=== PATIENT | male | born 1930 | race Caucasian/White ===

== ENCOUNTER 2016-08-29 18:22 | Emergency (ER) | payer MEDICARE, BC ==
[2016-08-29] MEDS ORDERED: Sodium Chloride 0.9% 10 ML Syringe FLUSH PRN (20:18)
[2016-08-29] MEDS ORDERED: Ondansetron 8 MG in Sodium Chloride 0.9% 100 ML IV ONE (20:18)
[2016-08-29] MEDS ORDERED: Sodium Chloride 0.9% 1,000 ML IV ONE (20:18)
[2016-08-29] MEDS ORDERED: Ondansetron 4 MG/2 ML SDV IVPUSH ONE (20:31)
[2016-08-29 21:06] LABS: CHLORIDE,CL 103 mmol/L (98-107); SODIUM,NA 138 mmol/L (136-145)
[2016-08-29] MEDS ORDERED: Acetaminophen 500 MG Tab PO ONE (21:14)
[2016-08-29] MEDS ORDERED: cefTRIAXone 1 GM Vial IVPUSH ONE (21:19)
--- NOTE | 2016-08-29 21:35 | EDM.PDOC ---
ED HISTORY OF PRESENT ILLNESS - General Chief Complaint: Fever Stated Complaint: fever, cough Time Seen by Provider: 08/29/16 20:05 Source of Information: Reports: Patient, Family History Limitations: Reports: No limitations - History of Present Illness INITIAL COMMENTS - FREE TEXT/NARRATIVE: Patient comes in tonight with his . He states he has been ill for approximately 10 days with a cough, fever, muscle aches and pains. He also states he is SOB. No chest pain, no bloody stool, emesis or urine. No abdominal pain. He did begin getting nauseated this evening with 2 episodes of emesis. This is new. He states last two days he has had diarrhea. Has had recent ill contact. He did receive the flu vaccine. 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 No alcohol, no drug use. Symptom Onset Date: 08/22/16 Timing/Duration: Reports: Gradual onset Severity: moderate Location, General: Reports: chest Improves with: Reports: None Worsens with: Reports: Movement Associated Symptoms (General): Reports: cough, fever/chills, loss of appetite, nausea/vomiting, shortness of breath, other (muscle aches) - Related Data Allergies/ADRs: Allergies Allergy/AdvReac Type Severity Reaction Status Date / Time morphine Allergy Other Verified 08/29/16 22:42 Home Meds: Home Meds Digoxin [Digox] 125 mcg PO DAILY 06/02/14 [History] Metoprolol Tartrate [Lopressor] 0.5 tab PO BID 06/02/14 [History] Warfarin [Coumadin] 5 mg PO ASDIRECTED 06/02/14 [History] atorvaSTATin [Lipitor] 10 mg PO BEDTIME 06/02/14 [History] Albuterol Sulfate [Albuterol Sulfate HFA] 2 inh INH Q2HR PRN 06/03/14 [History] Meclizine [Antivert] 12.5 mg PO DAILY PRN 06/03/14 [History] Nitroglycerin [Nitrostat] 0.4 mg SL ASDIRECTED PRN 06/03/14 [History] Tamsulosin [Tamsulosin 24 Hr] 0.4 mg PO DAILY 06/03/14 [History] Past Medical History HEENT History: Reports: Cataract, Impaired vision, Macular degeneration Cardiovascular History: Reports: Afib, CAD, Heart Failure, Heart murmur, High cholesterol, Hypertension, Pacemaker, PTCA, Other (see below) Other Cardiovascular History: vertigo, sinoatrial node dysfunction Respiratory History: Reports: COPD Gastrointestinal History: Reports: GERD, Other (see below) Other Gastrointestinal History: bilat ing. hernia, hx c. diff Genitourinary History: Reports: BPH, Renal calculus, Other (see below) Other Genitourinary History: CKD stage III Musculoskeletal History: Reports: Arthritis, Back pain, chronic, Neck pain, chronic, Other (see below) Other Musculoskeletal History: bilat carpal tunnel syndrome, Neurological History: Reports: TIA Psychiatric History: Reports: None Endocrine/Metabolic History: Reports: Other (see below) Other Endocrine/Metabolic History: hyperglycemia, Hematologic History: Reports: Anticoagulation therapy Immunologic History: Reports: None Dermatologic History: Reports: Melanoma Other Dermatologic History: BILAT ARMS SKIN CA - Past Surgical History HEENT Surgical History: Reports: Cataract surgery Other HEENT Surgeries/Procedures: INJECTIONS TO RIGHT EYE Q MONTHLY Cardiovascular Surgical History: Reports: Pacer, Percutaneous transluminal angioplasty GI Surgical History: Reports: Appendectomy, Cholecystectomy, Colonoscopy Male Surgical History: Reports: Other (see below) Other Male Surgeries/Procedures: nephrostomy tube placement, ureterolithotomy , cystoscopy Neurological Surgical History: Reports: Other (see below) Other Neurological Surgeries/Procedures: back sx x2 Musculoskeletal Surgical History: Reports: Other (see below) Other Musculoskeletal Surgeries/Procedures:: tendon sheath incision finger Social & Family History - Tobacco Use Smoking Status *Q: Former Smoker Years of Tobacco use: 30 Used Tobacco, but Quit: Yes Second Hand Smoke Exposure: No - Alcohol Use Days Per Week of Alcohol Use: 0 - Recreational Drug Use Recreational Drug Use: No ED ROS GENERAL - Review of Systems Review Of Systems: See Below Constitutional: Reports: fever, chills, malaise HEENT: Reports: No symptoms Respiratory: Reports: shortness of breath, cough Cardiovascular: Reports: No symptoms Endocrine: Reports: no symptoms GI/Abdominal: Reports: Diarrhea, Nausea, Vomiting : Reports: no symptoms Musculoskeletal: Reports: no symptoms Skin: Reports: no symptoms Neurological: Reports: no symptoms Psychiatric: Reports: No symptoms Hematologic/Lymphatic: Reports: no symptoms Immunologic: Reports: no symptoms ED EXAM, GENERAL - Physical Exam Exam: See Below Exam Limited By: No limitations General Appearance: alert, WD/WN, mild distress Eye Exam: bilateral eye: EOMI, PERRL Ears: normal TMs Nose: normal inspection Throat/Mouth: Normal inspection, Normal lips, Normal oropharynx, Normal voice Head: atraumatic, normocephalic Neck: normal inspection, supple, non-tender, full range of motion Respiratory/Chest: no respiratory distress, no accessory muscle use, chest non- tender, rhonchi (fine, scattered, bilateral lower lobes) Cardiovascular: normal peripheral pulses, regular rate, rhythm Peripheral Pulses: 2+: posterior tibial (L), posterior tibial (R), dorsalis pedis (L), dorsalis pedis (R) GI/Abdominal: normal bowel sounds, soft, non tender Extremities: normal inspection, normal range of motion, normal capillary refill Neurological: alert, oriented, CN II-XII intact, normal cognition, normal gait Psychiatric: normal affect, normal mood Skin Exam: Warm, Dry, Intact Lymphatic: no adenopathy Course - Vital Signs Last Recorded V/S: Last Vital Signs Temp 38.1 C 08/29/16 21:28 Pulse 94 08/29/16 21:28 Resp 20 08/29/16 21:28 BP 165/75 H 08/29/16 19:50 Pulse Ox 94 L 08/29/16 21:28 - Orders/Labs/Meds Orders: Active Orders 24 hr Category Date Time Status Chest 1V Frontal [CR] Stat Exams 08/29/16 20:50 Taken Chest 2V [CR] Stat Exams 08/29/16 20:18 Stop Req Saline Lock Insert [OM.PC] Routine Oth 08/29/16 20:18 Ordered Labs: Laboratory Tests 08/29/16 08/29/16 08/29/16 Range/Units 20:30 20:30 20:30 WBC 7.8 (4.0-10.0) x10^3/uL RBC 4.79 (4.5-6.0) x10^6/uL Hgb 15.7 (14.0-18.0) g/dL Hct 46.6 (40.0-52.0) % MCV 97.3 H (78.0-93.0) fL MCH 32.8 H (26.0-32.0) pg MCHC 33.7 (32.0-36.0) g/dL RDW Coeff of Larry 12.7 (10.0-15.0) % Plt Count 177 (130-400) x10^3/uL Neut % (Auto) 83.0 H (50.0-80.0) % Lymph % (Auto) 7.4 L (25.0-50.0) % Mccone % (Auto) 7.0 (2.0-11.0) % Eos % (Auto) 2.5 (0.0-4.0) % Baso % (Auto) 0.1 L (0.2-1.2) % Sodium 138 (136-145) mmol/L Potassium 4.4 (3.5-5.1) mmol/L Chloride 103 (98-107) mmol/L Carbon Dioxide 28 (21-32) mmol/L BUN 23 H (7-18) mg/dL Creatinine 1.4 H (0.70-1.30) mg/dL Est Cr Clr Drug Dosing TNP Estimated GFR (MDRD) 48 Glucose 175 H (74-106) mg/dL Lactic Acid 2.2 H (0.4-2.0) mmol/L Calcium 9.0 (8.5-10.1) mg/dL Corrected Calcium 9.56 (8.5-10.1) mg/dL Total Bilirubin 0.9 (0.2-1.0) mg/dL AST 16 (15-37) U/L ALT 20 (16-63) U/L Alkaline Phosphatase 94 (46-116) U/L C-Reactive Protein 4.0 H (<=0.9) mg/dL Total Protein 7.7 (6.4-8.2) g/dL Albumin 3.3 L (3.4-5.0) g/dL Globulin 4.4 Albumin/Globulin Ratio 0.75 Meds: Medications Discontinued Medications Generic Name Dose Route Start Last Admin Trade Name Freq PRN Reason Stop Dose Admin Acetaminophen 500 mg 08/29/16 21:14 08/29/16 21:24 Tylenol Extra Strength PO 08/29/16 21:15 500 mg ONETIME ONE Administration Ceftriaxone Sodium 1 gm 08/29/16 21:19 08/29/16 21:41 Rocephin IVPUSH 08/29/16 21:20 1 gm ONETIME ONE Administration Ondansetron HCl 8 mg/ Sodium 104 mls @ 400 mls/hr 08/29/16 20:18 Chloride IV 08/29/16 20:33 ONETIME ONE Sodium Chloride 1,000 mls @ 999 mls/hr 08/29/16 20:18 08/29/16 20:35 Normal Saline IV 08/29/16 21:18 999 mls/hr .BOLUS ONE Administration Ondansetron HCl 4 mg 08/29/16 20:31 08/29/16 20:30 Zofran IVPUSH 08/29/16 20:32 4 mg ONETIME ONE Administration Sodium Chloride 10 ml 08/29/16 20:18 Saline Flush FLUSH ASDIRECTED PRN Keep Vein Open Departure - Departure Time of Disposition: 21:55 Disposition: Home, Self-Care 01 Clinical Impression: Influenza A Instructions: Influenza, Adult, [id number] Referrals: Mary Gonzalez MD [Primary Care Provider] - Forms: ED Department Discharge Additional Instructions: Please make sure to take tylenol for your fever. You do have influenza A, radiologist did not believe you have a pneumonia. You do need to try to stay hydrated. This will help limit the length of your illness. I gave you a prescription for nausea medication that you can fill tomorrow. I gave some for you to take home tonight also. If your symptoms worsen please see your primary doctor for additional testing. If you have any questions or concerns please call or stop by the emergency room. - Problem List & Annotations (1) Influenza A SNOMED Code(s): 691913356 Code(s): J10.1 - FLU DUE TO OTH IDENT INFLUENZA VIRUS W OTH RESP MANIFEST Status: Acute Priority: Low - Problem List Review Problem List Initiated/Reviewed/Updated: Yes - My Orders Last 24 Hours: My Active Orders 08/29/16 20:18 Chest 2V [CR] Stat Saline Lock Insert [OM.PC] Routine 08/29/16 20:50 Chest 1V Frontal [CR] Stat - Assessment/Plan Last 24 Hours: My Active Orders 08/29/16 20:18 Chest 2V [CR] Stat Saline Lock Insert [OM.PC] Routine 08/29/16 20:50 Chest 1V Frontal [CR] Stat Assessment:: Influenza A Plan: Please make sure to take tylenol for your fever. You do have influenza A, radiologist did not believe you have a pneumonia. You do need to try to stay hydrated. This will help limit the length of your illness. I gave you a prescription for nausea medication that you can fill tomorrow. I gave some for you to take home tonight also. If your symptoms worsen please see your primary doctor for additional testing. If you have any questions or concerns please call or stop by the emergency room.
[2016-08-29 22:42] VITALS: BP 165/75
== END 2016-08-29 21:55 | disposition home or self-care (01) ==
LOC: VM.ED 18:22
DX: J10.1 Influenza due to other identified influenza virus with other respiratory manifestations (principal); I25.10 Atherosclerotic heart disease of native coronary artery without angina pectoris; I50.9 Heart failure, unspecified; I13.0 Hypertensive heart and chronic kidney disease with heart failure and stage 1 through stage 4 chronic kidney disease, or unspecified chronic kidney disease; E78.00 Pure hypercholesterolemia, unspecified; J44.9 Chronic obstructive pulmonary disease, unspecified; K21.9 Gastro-esophageal reflux disease without esophagitis; N18.3 Chronic kidney disease, stage 3 (moderate); M19.90 Unspecified osteoarthritis, unspecified site; Z88.5 Allergy status to narcotic agent; Z79.899 Other long term (current) drug therapy; Z79.01 Long term (current) use of anticoagulants; Z98.49 Cataract extraction status, unspecified eye; Z90.49 Acquired absence of other specified parts of digestive tract; Z87.891 Personal history of nicotine dependence
CPT/HCPCS: 36415; 71010; 80053; 83605; 85025; 86140; 87804; 96361; 96374; 96375; 99284; A9270; J0696; J2405; J7030

== ENCOUNTER 2016-12-11 05:21 | Emergency (ER) | payer MEDICARE, BC ==
--- NOTE | 2016-12-11 06:24 | EDM.PDOC ---
[id number] Time Seen by Provider: 12/11/16 05:54 Source of Information: Reports: Patient, Family History Limitations: Reports: No Limitations - History of Present Illness INITIAL COMMENTS - FREE TEXT/NARRATIVE: Patient comes in this morning with complaints of nose bleed. He had a stent placed on and was seen at the clinic on Monday because his IV site was oozing. He is receiving lovenox, plavix, aspirin, and coumadin. According to he and his he needs valve replacement surgery which they will be doing via angiography as he is not a candidate for open heart surgery. He is nauseated and having a bloody emesis due to all the blood that he has swallowed. His bloody nose is mostly resolved when I examine him, however, he does have an elevated systolic blood pressure and he has right eye pain. 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 Has had bilateral cataract surgery. Onset: Today Onset Date: 12/11/16 Onset Time: 03:00 Location: Reports: Head Quality: Reports: Ache Severity: Moderate Improves with: Reports: None Worsens with: Reports: None Associated Symptoms: Reports: Other (right eye pain) Right Eye Pain Score (Numeric/FACES): 3 - Related Data Allergies Allergy/AdvReac Type Severity Reaction Status Date / Time morphine Allergy Hives Verified 12/11/16 05:36 Home Meds: Home Meds Digoxin [Digox] 125 mcg PO DAILY 06/02/14 [History] Metoprolol Tartrate [Lopressor] 0.5 tab PO BID 06/02/14 [History] Warfarin [Coumadin] 5 mg PO ASDIRECTED 06/02/14 [History] atorvaSTATin [Lipitor] 10 mg PO BEDTIME 06/02/14 [History] Albuterol Sulfate [Albuterol Sulfate HFA] 2 inh INH Q2HR PRN 06/03/14 [History] Nitroglycerin [Nitrostat] 0.4 mg SL ASDIRECTED PRN 06/03/14 [History] Tamsulosin [Tamsulosin 24 Hr] 0.4 mg PO DAILY 06/03/14 [History] Aspirin 81 mg PO DAILY 12/11/16 [History] Clopidogrel [Plavix] 75 mg PO DAILY 12/11/16 [History] Enoxaparin [Lovenox] 80 mg SUBCUT Q12HR 12/11/16 [History] Sertraline [Zoloft] 12.5 mg PO DAILY 12/11/16 [History] Past Medical History HEENT History: Reports: Cataract, Impaired Vision, Macular Degeneration Cardiovascular History: Reports: Afib, CAD, Heart Failure, Heart Murmur, High Cholesterol, Hypertension, Pacemaker, PTCA, Other (See Below) Other Cardiovascular History: vertigo, sinoatrial node dysfunction Respiratory History: Reports: COPD Gastrointestinal History: Reports: GERD, Other (See Below) Other Gastrointestinal History: bilat ing. hernia, hx c. diff Genitourinary History: Reports: BPH, Renal Calculus, Other (See Below) Other Genitourinary History: CKD stage III Musculoskeletal History: Reports: Arthritis, Back Pain, Chronic, Neck Pain, Chronic, Other (See Below) Other Musculoskeletal History: bilat carpal tunnel syndrome, Neurological History: Reports: TIA Psychiatric History: Reports: None Endocrine/Metabolic History: Reports: Other (See Below) Other Endocrine/Metabolic History: hyperglycemia, Hematologic History: Reports: Anticoagulation Therapy Immunologic History: Reports: None Dermatologic History: Reports: Melanoma Other Dermatologic History: BILAT ARMS SKIN CA - Past Surgical History HEENT Surgical History: Reports: Cataract Surgery Cardiovascular Surgical History: Reports: Pacer, Percutaneous Transluminal Angioplasty Male Surgical History: Reports: Other (See Below) Musculoskeletal Surgical History: Reports: Other (See Below) Social & Family History - Tobacco Use Smoking Status *Q: Former Smoker Years of Tobacco use: 30 Used Tobacco, but Quit: Yes Month Tobacco Last Used: 360 Second Hand Smoke Exposure: No - Alcohol Use Days Per Week of Alcohol Use: 0 - Recreational Drug Use Recreational Drug Use: No ED ROS ENT - Review of Systems Review Of Systems: See Below Constitutional: Reports: No Symptoms HEENT: Reports: Eye Pain, Nosebleed Respiratory: Reports: Shortness of Breath (chronic) Cardiovascular: Reports: No Symptoms Endocrine: Reports: No Symptoms GI/Abdominal: Reports: Nausea, Vomiting : Reports: No Symptoms Musculoskeletal: Reports: No Symptoms Skin: Reports: No Symptoms Neurological: Reports: No Symptoms Psychiatric: Reports: No Symptoms Hematologic/Lymphatic: Reports: No Symptoms Immunologic: Reports: No Symptoms ED EXAM, ENT - Physical Exam Exam: See Below Exam Limited By: No Limitations General Appearance: Alert, WD/WN, Mild Distress Eye Exam: Bilateral Eye: EOMI Ears: Normal TMs Nose: Normal Inspection, Normal Mucousa, No Blood Mouth/Throat: Normal Inspection Head: Atraumatic, Normocephalic Neck: Normal Inspection, Supple, Non-Tender, Full Range of Motion Respiratory/Chest: No Respiratory Distress, Lungs Clear, Normal Breath Sounds, No Accessory Muscle Use Cardiovascular: Normal Peripheral Pulses, No Edema, Systolic Murmur, Irregularly Irregular GI/Abdominal: Normal Bowel Sounds, Soft, Non-Tender, No Organomegaly Extremities: Normal Inspection, Normal Range of Motion, Non-Tender, No Pedal Edema, Normal Capillary Refill Neurological: Alert, Oriented, CN II-XII Intact, Normal Cognition, Normal Gait, Normal Reflexes, No Motor/Sensory Deficits Psychiatric: Normal Affect, Normal Mood Skin: Warm, Dry, Intact, Normal Color Lymphatic: No Adenopathy Course - Vital Signs Last Recorded V/S: Last Vital Signs Temp 35.8 C 12/11/16 05:29 Pulse 75 12/11/16 11:30 Resp 16 12/11/16 11:30 BP 125/73 12/11/16 11:30 Pulse Ox 95 12/11/16 11:30 - Orders/Labs/Meds Labs: Laboratory Tests 12/11/16 12/11/16 12/11/16 Range/Units 06:47 06:47 06:47 WBC 9.6 (4.0-10.0) x10^3/uL RBC 4.44 L (4.5-6.0) x10^6/uL Hgb 14.8 (14.0-18.0) g/dL Hct 43.2 (40.0-52.0) % MCV 97.3 H (78.0-93.0) fL MCH 33.3 H (26.0-32.0) pg MCHC 34.3 (32.0-36.0) g/dL RDW Coeff of Larry 12.7 (10.0-15.0) % Plt Count 180 (130-400) x10^3/uL Neut % (Auto) 76.9 (50.0-80.0) % Lymph % (Auto) 10.7 L (25.0-50.0) % Liberty % (Auto) 7.6 (2.0-11.0) % Eos % (Auto) 4.6 H (0.0-4.0) % Baso % (Auto) 0.2 (0.2-1.2) % PT 17.3 H D (10.0-12.8) SEC INR 1.5 L (2.0-3.5) APTT (24.0-36.0) SEC Sodium 141 (136-145) mmol/L Potassium 4.1 (3.5-5.1) mmol/L Chloride 106 (98-107) mmol/L Carbon Dioxide 28 (21-32) mmol/L BUN 22 H (7-18) mg/dL Creatinine 1.3 (0.70-1.30) mg/dL Est Cr Clr Drug Dosing TNP Estimated GFR (MDRD) 52 Glucose 165 H (74-106) mg/dL Lactic Acid (0.4-2.0) mmol/L Calcium 8.9 (8.5-10.1) mg/dL Corrected Calcium 9.54 (8.5-10.1) mg/dL Total Bilirubin 0.8 (0.2-1.0) mg/dL AST 26 (15-37) U/L ALT 43 (16-63) U/L Alkaline Phosphatase 98 (46-116) U/L Creatine Kinase 27 L (39-308) U/L POC Troponin I (0.00-0.08) ng/mL C-Reactive Protein 1.6 H (<=0.9) mg/dL B-Natriuretic Peptide 1730 H (<=450) pg/mL Total Protein 7.2 (6.4-8.2) g/dL Albumin 3.2 L (3.4-5.0) g/dL Globulin 4.0 Albumin/Globulin Ratio 0.80 Digoxin 0.75 L (0.90-2.00) ng/mL 12/11/16 12/11/16 12/11/16 Range/Units 06:47 06:47 06:54 WBC (4.0-10.0) x10^3/uL RBC (4.5-6.0) x10^6/uL Hgb (14.0-18.0) g/dL Hct (40.0-52.0) % MCV (78.0-93.0) fL MCH (26.0-32.0) pg MCHC (32.0-36.0) g/dL RDW Coeff of Larry (10.0-15.0) % Plt Count (130-400) x10^3/uL Neut % (Auto) (50.0-80.0) % Lymph % (Auto) (25.0-50.0) % Liberty % (Auto) (2.0-11.0) % Eos % (Auto) (0.0-4.0) % Baso % (Auto) (0.2-1.2) % PT (10.0-12.8) SEC INR (2.0-3.5) APTT 32.5 (24.0-36.0) SEC Sodium (136-145) mmol/L Potassium (3.5-5.1) mmol/L Chloride (98-107) mmol/L Carbon Dioxide (21-32) mmol/L BUN (7-18) mg/dL Creatinine (0.70-1.30) mg/dL Est Cr Clr Drug Dosing Estimated GFR (MDRD) Glucose (74-106) mg/dL Lactic Acid 1.4 (0.4-2.0) mmol/L Calcium (8.5-10.1) mg/dL Corrected Calcium (8.5-10.1) mg/dL Total Bilirubin (0.2-1.0) mg/dL AST (15-37) U/L ALT (16-63) U/L Alkaline Phosphatase (46-116) U/L Creatine Kinase (39-308) U/L POC Troponin I 0.01 (0.00-0.08) ng/mL C-Reactive Protein (<=0.9) mg/dL B-Natriuretic Peptide (<=450) pg/mL Total Protein (6.4-8.2) g/dL Albumin (3.4-5.0) g/dL Globulin Albumin/Globulin Ratio Digoxin (0.90-2.00) ng/mL Meds: Medications Discontinued Medications Generic Name Dose Route Start Last Admin Trade Name Freq PRN Reason Stop Dose Admin Labetalol HCl 20 mg 12/11/16 06:33 12/11/16 06:59 Normodyne IVPUSH 12/11/16 06:34 20 mg NOW ONE Administration Protocol Ondansetron HCl 4 mg 12/11/16 06:29 12/11/16 06:32 Zofran Odt PO 12/11/16 06:30 4 mg ONETIME ONE Administration Sodium Chloride 10 ml 12/11/16 06:33 Saline Flush FLUSH ASDIRECTED PRN Keep Vein Open - Re-Assessments/Exams Free Text/Narrative Re-Assessment/Exam: 12/12/16 22:57 CT head ordered due to continued right eye pain and change in vision. Retinal hemorrhage shown on CT. Patient awaits transfer to [facility]. Patient hand off to All Donohue at 0700 Departure - Departure Time of Disposition: 07:00 (Report given to All Donohue. Patient transferred to [facility]) Disposition: DC/Tfer to Acute Hospital 02 Condition: Fair Clinical Impression: CHF (congestive heart failure), Retinal hemorrhage, right eye - Discharge Information Referrals: Mary Gonzalez MD [Primary Care Provider] - Forms: ED Department Discharge, Interfacility Transfer [facility]
[2016-12-11] MEDS ORDERED: Ondansetron 4 MG Tab.DIS PO ONE (06:29)
[2016-12-11] MEDS ORDERED: Sodium Chloride 0.9% 10 ML Syringe FLUSH PRN (06:33)
[2016-12-11] MEDS ORDERED: Labetalol 20 MG/4 ML Syringe IVPUSH ONE (06:33)
[2016-12-11 07:38] LABS: CHLORIDE,CL 106 mmol/L (98-107); SODIUM,NA 141 mmol/L (136-145)
[2016-12-11 12:48] VITALS: BP 125/73
--- NOTE | 2016-12-12 07:48 | ER ---
Date of Service: 12/11/2016 SUBJECTIVE: Link presents to the emergency room with complaints of epistaxis. The patient states that the bleeding started at approximately 4 o'clock this morning and he states that it has been intermittent in nature. The bleeding has only been present from the right naris. The patient denies any head or facial trauma. The patient also noticed when he woke up that he had acute central vision loss in the right eye. 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 Tinoco at [facility] for this. He undergoes injections of Eylea intravitreally for the macular degeneration. The patient has a history of valvular heart disease and is scheduled to undergo YONATHAN aortic valve replacement. He underwent PTCA with stenting of the left coronary artery. He was subsequently started on Plavix as well as Coumadin and is currently bridged with 80 mg twice daily of Lovenox which is obviously causing complications of a retinal hemorrhage and epistaxis. PAST MEDICAL HISTORY: 1. Congestive heart failure. 2. Valvular heart disease. 3. Coronary artery disease. 4. BPH. 5. Depression. 6. Hypertension. 7. Anxiety. 8. Dyslipidemia. MEDICATIONS: 1. Albuterol HFA 2 puffs q.2 h. p.r.n. 2. Coumadin 5 mg p.o. as directed by the [facility]. 3. Flomax 0.4 mg p.o. daily. 4. Zoloft 12.5 mg p.o. daily. 5. Metoprolol tartrate 25 mg half a tablet p.o. b.i.d. 6. Digoxin 125 mcg p.o. daily. 7. Lipitor 10 mg p.o. at bedtime. 8. Lovenox 80 mg subcutaneously every 12 hours. 9. Clopidogrel 75 mg p.o. daily. 10.Aspirin 81 mg daily. 11.Nitrostat 0.4 mg sublingually as needed. REVIEW OF SYSTEMS: General: No fever or chills. HEENT: Denies any sore throat, rhinorrhea, or congestion. Please see history of present illness. Respiratory: No shortness of breath. Complains of mild cough and dyspnea. Cardiac: Denies any substernal chest pain. No jaw, arm, neck, or back pain. GI: No nausea, vomiting, or diarrhea. No melena, hematochezia, or hematemesis. : Denies any dysuria. Musculoskeletal: No myalgias or arthralgias. Neurologic: No fainting, blackouts, or lightheadedness. PHYSICAL EXAMINATION: General: This is an 86-year-old male patient, who is in no acute distress. Vital Signs: Blood pressure is 200/93, heart rate is 79, O2 saturations 93% on room air, respiratory rate is 20, and temperature is 35.8. Skin: Warm, pink, and dry. HEENT: Head is normocephalic, atraumatic. Eyes: PERRLA. Extraocular movements are intact. He does have evidence of what appears to be a retinal hemorrhage. Nose: Epistaxis is controlled. Mouth: Oral mucosa is moist. Lungs: Clear to auscultation. Diminished with crackles. No obvious rhonchi noted. Heart: Regular rate and rhythm. Normal S1 and S2. No S3, S4, murmurs, clicks, or rubs. Irregularly irregular with a systolic murmur. Abdomen: Soft and nontender. There is no hepatosplenomegaly noted. There is no masses noted. Extremities: Without edema. Neurologic: He is alert and oriented, answers questions appropriately. His speech is fluent. His recreation specialist strength is equal. His pronator drift is negative. No facial droop noted. LABORATORY DATA: WBCs 9.6, hemoglobin is 14.8, and platelets are 180. Coags: PT is 17.3, INR is 1.5, and PTT is 32.5. Chemistry: Sodium is 141, potassium is 4.1, chloride is 106, bicarb is 28, BUN is 22, and creatinine is 1.3. GFR is 52. Glucose is 165. Lactic acid is 1.4. Calcium is 8.9. Corrected calcium is 9.54. Total bilirubin is 0.8, AST is 26, ALT is 43, alkaline phosphatase is 98, CK is 27, and troponin is 0.01. C-reactive protein is 1.6. BNP is 1730, total protein is 7.5, and albumin is 3.2. Digit level was low at 0.17. EMERGENCY ROOM COURSE: IV access was established. The patient was given 20 mg of labetalol IV and his blood pressure decreased nicely and at discharge, his blood pressure was 140/75. He was experiencing some pain in his right eye which he states has decreased significantly since I have being treated for his hypertension. He remained stable in my care in the emergency room. ASSESSMENT: 1. Congestive heart failure. 2. Aortic valve stenosis. 3. Retinal hemorrhage and epistaxis secondary to anticoagulation with Coumadin and Lovenox and use of Plavix. PLAN: Initially, did contact [facility] regarding his retinal hemorrhage and they stated that they did not have a retina specialist available. I subsequently contacted [facility] in [place] and spoke with Dr. Chung, who was much more helpful regarding disposition for this patient. He stated that they would see him in the clinic for injection of Eylea next week if I could not arrange for the patient to see a retina specialist. He also stated that he would not require intervention from optometry acutely and stated that they could certainly wait until his medical conditions are stabilized and advised either contacting [facility] in [place] or Dr. Pedro Andrade, retina redness specialist in [place] regarding care for this patient after he is discharged. I subsequently contacted Dr. Kaylee Rowan regarding admission for this patient and stabilization of his congestive heart failure and she stated that she did not feel comfortable caring for this patient given his complex history of heart disease and requested that the patient be transferred to [facility] in [place]. I subsequently contacted [facility] again and spoke with Dr. Arana, the hospitalist again who at this time did accept the patient in transfer only to care for his cardiac issues and congestive heart failure. The patient will be transported by [facility] ground ambulance. To note, I did speak with Dr. Arana regarding my discussion with Dr. Chung, and subsequent follow up either at [facility] in [place] or with Dr. Andrade in [place]. All questions were answered. MWK: 12/11/2016 11:11:19 MODL: 12/11/2016 12:45:09 /[id number]
== END 2016-12-11 12:06 | disposition short-term general hospital (02) ==
LOC: VM.ED 05:21
DX: R04.0 Epistaxis (principal); D68.32 Hemorrhagic disorder due to extrinsic circulating anticoagulants; T45.515A Adverse effect of anticoagulants, initial encounter; T45.525A Adverse effect of antithrombotic drugs, initial encounter; I50.9 Heart failure, unspecified; I35.0 Nonrheumatic aortic (valve) stenosis; H35.61 Retinal hemorrhage, right eye; Z79.02 Long term (current) use of antithrombotics/antiplatelets; R11.2 Nausea with vomiting, unspecified; Z79.01 Long term (current) use of anticoagulants; Z79.82 Long term (current) use of aspirin; H54.42 Blindness, left eye, normal vision right eye; I48.91 Unspecified atrial fibrillation; I25.10 Atherosclerotic heart disease of native coronary artery without angina pectoris; N18.3 Chronic kidney disease, stage 3 (moderate); E78.00 Pure hypercholesterolemia, unspecified; I49.5 Sick sinus syndrome; J44.9 Chronic obstructive pulmonary disease, unspecified; K21.9 Gastro-esophageal reflux disease without esophagitis; N40.0 Benign prostatic hyperplasia without lower urinary tract symptoms; M19.90 Unspecified osteoarthritis, unspecified site; G89.29 Other chronic pain; M54.9 Dorsalgia, unspecified; Z86.73 Personal history of transient ischemic attack (TIA), and cerebral infarction without residual deficits; Z85.820 Personal history of malignant melanoma of skin; Z95.5 Presence of coronary angioplasty implant and graft; Z95.0 Presence of cardiac pacemaker; Z87.891 Personal history of nicotine dependence
CPT/HCPCS: 36415; 70450; 71020; 80053; 80162; 82550; 83605; 83880; 84484; 85025; 85610; 85730; 86140; 93005; 96374; 99285; A9270

== ENCOUNTER 2017-03-11 15:23 | Emergency (ER) | payer MEDICARE, BC ==
--- NOTE | 2017-03-11 15:34 | EDM.PDOC ---
ED HPI GENERAL MEDICAL PROBLEM - General Chief Complaint: Cardiovascular Problem Stated Complaint: infected pacemaker Time Seen by Provider: 03/11/17 15:24 Source of Information: Reports: Patient, Family, RN, RN Notes Reviewed History Limitations: Reports: No Limitations - History of Present Illness INITIAL COMMENTS - FREE TEXT/NARRATIVE: Patient presents the emergency room at [facility] with concerns of a possible pacemaker infection. According to the patient's the patient has had a lump over the top of the insertion site of the patient's pacemaker. The states the pacemaker has been implanted several years ago. The white states the lump has been there for a very long time, but just recently the lump started to drain. The states that she talked with the patient's cardiovascular surgeon today who recommended the patient be evaluated in the emergency room. The states the patient is scheduled to have heart surgery this coming Monday. The cardiovascular surgeon recommended the patient be seen and started on antibiotics as soon as possible. Onset: Gradual - Related Data Allergies Allergy/AdvReac Type Severity Reaction Status Date / Time morphine Allergy Respiratory Verified 03/11/17 15:37 Distress Home Meds: Home Meds Digoxin [Digox] 125 mcg PO DAILY 06/02/14 [History] Metoprolol Tartrate [Lopressor] 0.5 tab PO BID 06/02/14 [History] Warfarin [Coumadin] 5 mg PO ASDIRECTED 06/02/14 [History] atorvaSTATin [Lipitor] 10 mg PO BEDTIME 06/02/14 [History] Albuterol Sulfate [Albuterol Sulfate HFA] 2 inh INH Q2HR PRN 06/03/14 [History] Nitroglycerin [Nitrostat] 0.4 mg SL ASDIRECTED PRN 06/03/14 [History] Tamsulosin [Tamsulosin 24 Hr] 0.4 mg PO DAILY 06/03/14 [History] Aspirin 81 mg PO DAILY 12/11/16 [History] Clopidogrel [Plavix] 75 mg PO DAILY 12/11/16 [History] Enoxaparin [Lovenox] 80 mg SUBCUT Q12HR 12/11/16 [History] Sertraline [Zoloft] 12.5 mg PO DAILY 12/11/16 [History] Sulfamethoxazole/Trimethoprim [Bactrim Ds Tablet] 1 each PO BID 8 Days #16 tablet 03/11/17 [Rx] Past Medical History HEENT History: Reports: Cataract, Impaired Vision, Macular Degeneration Cardiovascular History: Reports: Afib, CAD, Heart Failure, Heart Murmur, High Cholesterol, Hypertension, Pacemaker, PTCA, Other (See Below) Other Cardiovascular History: vertigo, sinoatrial node dysfunction Respiratory History: Reports: COPD Gastrointestinal History: Reports: GERD, Other (See Below) Other Gastrointestinal History: bilat ing. hernia, hx c. diff Genitourinary History: Reports: BPH, Renal Calculus, Other (See Below) Other Genitourinary History: CKD stage III Musculoskeletal History: Reports: Arthritis, Back Pain, Chronic, Neck Pain, Chronic, Other (See Below) Other Musculoskeletal History: bilat carpal tunnel syndrome, Neurological History: Reports: TIA Psychiatric History: Reports: None Endocrine/Metabolic History: Reports: Other (See Below) Other Endocrine/Metabolic History: hyperglycemia, Hematologic History: Reports: Anticoagulation Therapy Immunologic History: Reports: None Dermatologic History: Reports: Melanoma Other Dermatologic History: BILAT ARMS SKIN CA - Past Surgical History HEENT Surgical History: Reports: Cataract Surgery Cardiovascular Surgical History: Reports: Pacer, Percutaneous Transluminal Angioplasty Male Surgical History: Reports: Other (See Below) Musculoskeletal Surgical History: Reports: Other (See Below) Social & Family History - Tobacco Use Smoking Status *Q: Former Smoker Years of Tobacco use: 30 Used Tobacco, but Quit: Yes Month Tobacco Last Used: 360 Second Hand Smoke Exposure: No - Alcohol Use Days Per Week of Alcohol Use: 0 - Recreational Drug Use Recreational Drug Use: No ED ROS GENERAL - Review of Systems Review Of Systems: See Below Constitutional: Denies: Fever, Chills, Weakness Respiratory: Denies: Shortness of Breath, Cough Cardiovascular: Denies: Chest Pain, Palpitations Skin: Reports: Lesions (cyst left upper chest over pacemaker site) Neurological: Reports: No Symptoms. Denies: Headache, Numbness, Paresthesia, Tingling ED EXAM, GENERAL - Physical Exam Exam: See Below Exam Limited By: No Limitations General Appearance: Alert, No Apparent Distress Respiratory/Chest: No Respiratory Distress, Lungs Clear, Normal Breath Sounds Cardiovascular: Regular Rate, Rhythm Neurological: Alert, Oriented Skin Exam: Warm, Dry, Normal Color, No Rash, Wound/Incision (dermal inclusion cyst over left pacemaker site; area firm; non-tender; mild erythema; no over evidence of infection) ED I&D PROCEDURES - I&D Site: Left Chest Wall Skin prep: Providone-Iodine (Betadine), Isopropyl Alcohol (Alcohol) Local anesthesia - Lidocaine (Xylocaine): Other (none) Area Incised With: 11 Blade Drainage: Purulent, Large Amount Probed to Break Up Loculations: Yes Packed With: None Sterile Dressinx4(s) Complications: No Progress/Comments: Dermal Inclusion Cyst left chest wall, area opened with #11 blade, large amount of pasty foul-smelling material removed; 3 4-0 Nylon sutures used to close the site; patient tolerated well, no complications Course - Vital Signs Last Recorded V/S: Last Vital Signs Temp 36.8 C 03/11/17 15:30 Pulse 75 03/11/17 15:30 Resp 18 03/11/17 15:30 BP 139/92 H 03/11/17 15:30 Pulse Ox 94 L 03/11/17 15:30 - Orders/Labs/Meds Orders: Active Orders 24 hr Category Date Time Status C-REACTIVE PROTEIN [CHEM] Stat Lab 03/11/17 15:58 Received CBC WITH AUTO DIFF [HEME] Stat Lab 03/11/17 15:58 Received COMPREHENSIVE METABOLIC PN,CMP [CHEM] Stat Lab 03/11/17 15:58 Received CULTURE BLOOD [BC] Stat Lab 03/11/17 15:58 Received CULTURE BLOOD [BC] Stat Lab 03/11/17 16:01 Received CULTURE WOUND + SMEAR [RM] Stat Lab 03/11/17 16:19 Ordered LACTIC ACID [CHEM] Stat Lab 03/11/17 15:58 Received Sodium Chloride 0.9% [Normal Saline] 500 ml Med 03/11/17 16:05 Active IV ONETIME Sodium Chloride 0.9% [Saline Flush] Med 03/11/17 16:04 Active 10 ml FLUSH ASDIRECTED PRN Blood Culture x2 Reflex Set [OM.PC] Stat Oth 03/11/17 15:34 Ordered Peripheral IV Insertion Adult [OM.PC] Routine Oth 03/11/17 16:04 Ordered Medication Orders Sodium Chloride (Normal Saline) 500 mls @ 999 mls/hr IV ONETIME ONE Stop: 03/11/17 16:35 Sodium Chloride (Saline Flush) 10 ml FLUSH ASDIRECTED PRN PRN Reason: Keep Vein Open Meds: Medications Generic Name Dose Route Start Last Admin Trade Name Freq PRN Reason Stop Dose Admin Sodium Chloride 500 mls @ 999 mls/hr 03/11/17 16:05 Normal Saline IV 03/11/17 16:35 ONETIME ONE Sodium Chloride 10 ml 03/11/17 16:04 Saline Flush FLUSH ASDIRECTED PRN Keep Vein Open Discontinued Medications Generic Name Dose Route Start Last Admin Trade Name Maikel PRN Reason Stop Dose Admin Cefazolin Sodium 1 gm 03/11/17 16:05 Ancef IVPUSH 03/11/17 16:06 ONETIME ONE Departure - Departure Time of Disposition: 16:25 Disposition: Home, Self-Care 01 Condition: Good Clinical Impression: Epidermal inclusion cyst, Encounter for incision and drainage procedure Prescriptions: Sulfamethoxazole/Trimethoprim [Bactrim Ds Tablet] 1 each PO BID 8 Days #16 tablet Instructions: Incision and Drainage, Incision and Drainage, Care After, Sebaceous Cyst Removal Referrals: Mary Gonzalez MD [Primary Care Provider] - Forms: ED Department Discharge Additional Instructions: 1. Stay well hydrated and rest 2. Leave bandage on for 48 hours, then remove 3. Take antibiotics twice a day until gone; take with food 4. May cover incision up with drainage reoccurs 5. Suture need to stay in for 10 days 6. See your Primary in 10 days for a recheck 7. Call with any questions - Problem List Review Problem List Initiated/Reviewed/Updated: Yes - My Orders Last 24 Hours: My Active Orders 03/11/17 15:34 Blood Culture x2 Reflex Set [OM.PC] Stat 03/11/17 15:58 C-REACTIVE PROTEIN [CHEM] Stat CBC WITH AUTO DIFF [HEME] Stat COMPREHENSIVE METABOLIC PN,CMP [CHEM] Stat CULTURE BLOOD [BC] Stat LACTIC ACID [CHEM] Stat 03/11/17 16:01 CULTURE BLOOD [BC] Stat 03/11/17 16:04 Sodium Chloride 0.9% [Saline Flush] 10 ml FLUSH ASDIRECTED PRN Peripheral IV Insertion Adult [OM.PC] Routine 03/11/17 16:05 Sodium Chloride 0.9% [Normal Saline] 500 ml IV ONETIME 03/11/17 16:19 CULTURE WOUND + SMEAR [RM] Stat - Assessment/Plan Last 24 Hours: My Active Orders 03/11/17 15:34 Blood Culture x2 Reflex Set [OM.PC] Stat 03/11/17 15:58 C-REACTIVE PROTEIN [CHEM] Stat CBC WITH AUTO DIFF [HEME] Stat COMPREHENSIVE METABOLIC PN,CMP [CHEM] Stat CULTURE BLOOD [BC] Stat LACTIC ACID [CHEM] Stat 03/11/17 16:01 CULTURE BLOOD [BC] Stat 03/11/17 16:04 Sodium Chloride 0.9% [Saline Flush] 10 ml FLUSH ASDIRECTED PRN Peripheral IV Insertion Adult [OM.PC] Routine 03/11/17 16:05 Sodium Chloride 0.9% [Normal Saline] 500 ml IV ONETIME 03/11/17 16:19 CULTURE WOUND + SMEAR [RM] Stat
[2017-03-11 15:36] VITALS: BP 139/92
[2017-03-11] MEDS ORDERED: Sodium Chloride 0.9% 10 ML Syringe FLUSH PRN (16:04)
[2017-03-11] MEDS ORDERED: Sodium Chloride 0.9% 500 ML IV ONE (16:05)
[2017-03-11] MEDS ORDERED: ceFAZolin 1 GM Vial IVPUSH ONE (16:05)
[2017-03-11] MEDS ORDERED: Take Home: Sulfamethoxazole/Trimethoprim 800-160 MG Tab, 2 Tab Pack PO ONE (16:29)
== END 2017-03-11 17:00 | disposition home or self-care (01) ==
LOC: VM.ED 15:23
DX: L72.0 Epidermal cyst (principal); I13.0 Hypertensive heart and chronic kidney disease with heart failure and stage 1 through stage 4 chronic kidney disease, or unspecified chronic kidney disease; N18.3 Chronic kidney disease, stage 3 (moderate); I50.9 Heart failure, unspecified; I25.10 Atherosclerotic heart disease of native coronary artery without angina pectoris; I48.91 Unspecified atrial fibrillation; E78.00 Pure hypercholesterolemia, unspecified; J44.9 Chronic obstructive pulmonary disease, unspecified; K21.9 Gastro-esophageal reflux disease without esophagitis; M19.90 Unspecified osteoarthritis, unspecified site; Z86.73 Personal history of transient ischemic attack (TIA), and cerebral infarction without residual deficits; Z88.6 Allergy status to analgesic agent; Z79.82 Long term (current) use of aspirin; Z87.891 Personal history of nicotine dependence; Z85.828 Personal history of other malignant neoplasm of skin; Z98.49 Cataract extraction status, unspecified eye; Z79.01 Long term (current) use of anticoagulants; Z79.899 Other long term (current) drug therapy
CPT/HCPCS: 10060; 36415; 80053; 83605; 85025; 86140; 87040; 87070; 87205; 96361; 96374; 99282; A9270; J0690; J7030

== ENCOUNTER 2017-08-28 02:17 | Emergency (ER) | payer MEDICARE, BC ==
[2017-08-28] MEDS: Sodium Chloride 0.9% 1,000 ML IV ONE (02:52)
[2017-08-28] MEDS: HYDROmorphone 1 MG/ML Syringe IVPUSH ONE ×2 (02:52→04:22)
[2017-08-28 03:30] LABS: CHLORIDE,CL 105 mmol/L (98-107); SODIUM,NA 138 mmol/L (136-145)
--- NOTE | 2017-08-28 04:12 | EDM.PDOC ---
ED HPI GENERAL MEDICAL PROBLEM - General Chief Complaint: Genitourinary Problem Stated Complaint: Left Flank Pain Time Seen by Provider: 08/28/17 02:27 Source of Information: Reports: Patient History Limitations: Reports: No Limitations - History of Present Illness INITIAL COMMENTS - FREE TEXT/NARRATIVE: Pt. presents to ER with intermittent flank pain starting yesterday and waking him with constant pain in the night. He was transported to ER via EMS and received IV dilaudid. He states that this did little to help the pain. Pt. has a history of kidney stones and underwent cystoscopy and stent placement for a 5 mm. stone in the R ureter in 2012. Pt. related that he had gross hematuria and was started on Bactrim for 3 days in the clinic by Dr. Gonzalez last week. Onset: Today Onset Date: 08/27/17 Location: Reports: Back (L flank pain) Quality: Reports: Ache, Sharp Severity: Severe Left Flank Pain Pain Score (Numeric/FACES): 10 - Related Data Allergies Allergy/AdvReac Type Severity Reaction Status Date / Time morphine Allergy Hives Verified 08/28/17 03:40 Home Meds: Home Meds Metoprolol Tartrate [Lopressor] 0.5 tab PO BID 06/02/14 [History] Warfarin [Coumadin] 5 mg PO ASDIRECTED 06/02/14 [History] atorvaSTATin [Lipitor] 10 mg PO BEDTIME 06/02/14 [History] Albuterol Sulfate [Albuterol Sulfate HFA] 2 inh INH Q4H PRN 06/03/14 [History] Nitroglycerin [Nitrostat] 0.4 mg SL ASDIRECTED PRN 06/03/14 [History] Tamsulosin [Tamsulosin 24 Hr] 0.4 mg PO DAILY 06/03/14 [History] Clopidogrel [Plavix] 75 mg PO DAILY 12/11/16 [History] Sertraline [Zoloft] 25 mg PO DAILY 12/11/16 [History] Acetaminophen [Tylenol Extra Strength] 500 mg PO Q4H PRN 03/29/17 [History] Acetaminophen/Diphenhydramine [Tylenol Pm Ex-Strength Caplet] 2 tab PO BEDTIME PRN 03/29/17 [History] Albuterol/Ipratropium [DuoNeb 3.0-0.5 MG/3 ML] 3 ml NEB QID PRN 03/29/17 [ History] Furosemide [Lasix] 10 mg PO DAILY 03/29/17 [History] Markel/Polymyx B Sulf/Dexameth [Maxitrol Eye Drops] 1 drop EYERT BEDTIME 03/29/17 [ History] Sodium Chloride [Heppner Saline] 2 spray NS QID 03/29/17 [History] Umeclidinium Brm/Vilanterol Tr [Anoro Ellipta 62.5-25 MCG] 1 puff IH DAILY 03/29 [History] Past Medical History HEENT History: Reports: Cataract, Impaired Vision, Macular Degeneration Cardiovascular History: Reports: Afib, CAD, Heart Failure, Heart Murmur, High Cholesterol, Hypertension, Pacemaker, PTCA, Other (See Below) Other Cardiovascular History: vertigo, sinoatrial node dysfunction Respiratory History: Reports: COPD Gastrointestinal History: Reports: GERD, Other (See Below) Other Gastrointestinal History: bilat ing. hernia, hx c. diff Genitourinary History: Reports: BPH, Renal Calculus, Other (See Below) Other Genitourinary History: CKD stage III Musculoskeletal History: Reports: Arthritis, Back Pain, Chronic, Neck Pain, Chronic, Other (See Below) Other Musculoskeletal History: bilat carpal tunnel syndrome, Neurological History: Reports: TIA Psychiatric History: Reports: None Endocrine/Metabolic History: Reports: Other (See Below) Other Endocrine/Metabolic History: hyperglycemia, Hematologic History: Reports: Anticoagulation Therapy Immunologic History: Reports: None Dermatologic History: Reports: Melanoma Other Dermatologic History: BILAT ARMS SKIN CA - Past Surgical History HEENT Surgical History: Reports: Cataract Surgery Cardiovascular Surgical History: Reports: Pacer, Percutaneous Transluminal Angioplasty, Other (See Below) Other Cardiovascular Surgeries/Procedures: remove infected pacemaker 02/2017 Male Surgical History: Reports: Other (See Below) Musculoskeletal Surgical History: Reports: Other (See Below) Social & Family History - Tobacco Use Smoking Status *Q: Never Smoker Years of Tobacco use: 30 Packs/Tins Daily: 1.5 Used Tobacco, but Quit: Yes Month Tobacco Last Used: 1991 Second Hand Smoke Exposure: No - Caffeine Use Caffeine Use: Reports: Coffee - Alcohol Use Days Per Week of Alcohol Use: 0 - Recreational Drug Use Recreational Drug Use: No ED ROS GENERAL - Review of Systems Review Of Systems: See Below Constitutional: Reports: No Symptoms HEENT: Reports: No Symptoms Respiratory: Reports: No Symptoms Cardiovascular: Reports: No Symptoms Endocrine: Reports: No Symptoms GI/Abdominal: Reports: Nausea : Reports: Flank Pain Musculoskeletal: Reports: No Symptoms Skin: Reports: No Symptoms Neurological: Reports: No Symptoms Psychiatric: Reports: No Symptoms Hematologic/Lymphatic: Reports: No Symptoms Immunologic: Reports: No Symptoms ED EXAM, GENERAL - Physical Exam Exam: See Below Exam Limited By: No Limitations General Appearance: Alert, WD/WN, No Apparent Distress Head: Atraumatic, Normocephalic Respiratory/Chest: No Respiratory Distress, Lungs Clear, Normal Breath Sounds, No Accessory Muscle Use, Chest Non-Tender Cardiovascular: No Edema, No JVD, No Rub, Systolic Murmur, Irregularly Irregular Peripheral Pulses: 3+: Radial (L), Radial (R) GI/Abdominal: Soft, Non-Tender, No Organomegaly, No Distention, No Mass (Male) Exam: Deferred Rectal (Males) Exam: Deferred Back Exam: Normal Inspection, Full Range of Motion Extremities: Normal Inspection, Normal Range of Motion, Non-Tender, Normal Capillary Refill, No Pedal Edema Neurological: Alert, Oriented, Normal Cognition, Other (tremor is worse, presumably a stress/pain response) Psychiatric: Normal Affect, Normal Mood Skin Exam: Warm, Intact, Normal Color, No Rash Course - Vital Signs Last Recorded V/S: Last Vital Signs Temp 36.5 C 08/28/17 04:07 Pulse 94 08/28/17 04:07 Resp 16 08/28/17 04:07 BP 141/89 H 08/28/17 04:07 Pulse Ox 91 L 08/28/17 04:07 - Orders/Labs/Meds Orders: Active Orders 24 hr Category Date Time Status Abdomen Pelvis wo Cont [CT] Stat Exams 08/28/17 02:30 Taken Chest 1V Frontal [CR] Stat Exams 08/28/17 02:29 Stop Req CULTURE BLOOD [BC] Stat Lab 08/28/17 02:35 Received CULTURE BLOOD [BC] Stat Lab 08/28/17 02:45 Received cefTRIAXone [Rocephin] Med 08/28/17 04:12 Once 1 gm IVPUSH ONETIME ONE Blood Culture x2 Reflex Set [OM.PC] Stat Oth 08/28/17 02:29 Ordered Labs: Laboratory Tests 08/28/17 08/28/17 08/28/17 Range/Units 02:35 02:35 02:35 WBC 8.2 (4.0-10.0) x10^3/uL RBC 4.39 L (4.5-6.0) x10^6/uL Hgb 15.0 (14.0-18.0) g/dL Hct 44.3 (40.0-52.0) % MCV 100.9 H (78.0-93.0) fL MCH 34.2 H (26.0-32.0) pg MCHC 33.9 (32.0-36.0) g/dL RDW Coeff of Larry 13.7 (10.0-15.0) % Plt Count 104 L (130-400) x10^3/uL Neut % (Auto) 77.4 (50.0-80.0) % Lymph % (Auto) 9.7 L (25.0-50.0) % Galax % (Auto) 8.4 (2.0-11.0) % Eos % (Auto) 4.4 H (0.0-4.0) % Baso % (Auto) 0.1 L (0.2-1.2) % PT 33.5 H D (9.8-11.8) SEC INR 3.2 (2.0-3.5) Sodium 138 (136-145) mmol/L Potassium 4.2 (3.5-5.1) mmol/L Chloride 105 (98-107) mmol/L Carbon Dioxide 27 (21-32) mmol/L BUN 31 H (7-18) mg/dL Creatinine 1.8 H (0.70-1.30) mg/dL Est Cr Clr Drug Dosing TNP Estimated GFR (MDRD) 36 Glucose 120 H (74-106) mg/dL Calcium 8.8 (8.5-10.1) mg/dL Corrected Calcium 9.68 (8.5-10.1) mg/dL Total Bilirubin 0.6 (0.2-1.0) mg/dL AST 17 (15-37) U/L ALT 35 (16-63) U/L Alkaline Phosphatase 114 (46-116) U/L C-Reactive Protein 0.5 (<=0.9) mg/dL Total Protein 6.7 (6.4-8.2) g/dL Albumin 2.9 L (3.4-5.0) g/dL Globulin 3.8 Albumin/Globulin Ratio 0.76 Meds: Medications Discontinued Medications Generic Name Dose Route Start Last Admin Trade Name Jonhq PRN Reason Stop Dose Admin Hydromorphone HCl 1 mg 08/28/17 02:35 08/28/17 02:52 Dilaudid IVPUSH 08/28/17 02:36 1 mg ONETIME ONE Administration Hydromorphone HCl 1 mg 08/28/17 04:11 Dilaudid IVPUSH 08/28/17 04:12 ONETIME ONE Sodium Chloride 1,000 mls @ 1,000 mls/hr 08/28/17 02:36 08/28/17 02:52 Normal Saline IV 08/28/17 03:35 1,000 mls/hr .BOLUS ONE Administration - Radiology Interpretation Free Text/Narrative:: 2 cm. L proximal ureteral stone and 8mm L mid ureteral stone with severe hydronephrosis Departure - Departure Time of Disposition: 04:45 Disposition: DC/[facility] to [facility] 02 Clinical Impression: Kidney stone on left side, Kidney stone - Discharge Information Instructions: Renal Colic Referrals: Mary Gonzalez MD [Primary Care Provider] - Forms: ED Department Discharge - My Orders Last 24 Hours: My Active Orders 08/28/17 02:29 Chest 1V Frontal [CR] Stat Blood Culture x2 Reflex Set [OM.PC] Stat 08/28/17 02:30 Abdomen Pelvis wo Cont [CT] Stat 08/28/17 02:35 CULTURE BLOOD [BC] Stat 08/28/17 02:45 CULTURE BLOOD [BC] Stat 08/28/17 04:12 cefTRIAXone [Rocephin] 1 gm IVPUSH ONETIME ONE - Assessment/Plan Last 24 Hours: My Active Orders 08/28/17 02:29 Chest 1V Frontal [CR] Stat Blood Culture x2 Reflex Set [OM.PC] Stat 08/28/17 02:30 Abdomen Pelvis wo Cont [CT] Stat 08/28/17 02:35 CULTURE BLOOD [BC] Stat 08/28/17 02:45 CULTURE BLOOD [BC] Stat 08/28/17 04:12 cefTRIAXone [Rocephin] 1 gm IVPUSH ONETIME ONE
[2017-08-28] MEDS: cefTRIAXone 1 GM Vial IVPUSH ONE (04:22)
[2017-08-28 04:42] VITALS: BP 146/72
== END 2017-08-28 05:10 | disposition short-term general hospital (02) ==
LOC: VM.ED 02:17
DX: N13.2 Hydronephrosis with renal and ureteral calculous obstruction (principal); I50.9 Heart failure, unspecified; I13.0 Hypertensive heart and chronic kidney disease with heart failure and stage 1 through stage 4 chronic kidney disease, or unspecified chronic kidney disease; E78.00 Pure hypercholesterolemia, unspecified; N18.3 Chronic kidney disease, stage 3 (moderate); Z88.5 Allergy status to narcotic agent; Z79.899 Other long term (current) drug therapy; Z87.891 Personal history of nicotine dependence
CPT/HCPCS: 36415; 74176; 80053; 85025; 85610; 86140; 87040; 96365; 96366; 96375; 96376; 99285; J0696; J1170; J7030

== ENCOUNTER 2017-09-15 18:33 | Emergency (ER) | payer MEDICARE, BC ==
[2017-09-15] MEDS ORDERED: cefTRIAXone 1 GM Vial IVPUSH ONE (19:18)
[2017-09-15] MEDS ORDERED: Acetaminophen 325 MG Tab PO ONE (19:20)
[2017-09-15 19:44] LABS: CHLORIDE,CL 103 mmol/L (98-107); SODIUM,NA 140 mmol/L (136-145)
--- NOTE | 2017-09-15 19:58 | EDM.PDOC ---
ED HPI GENERAL MEDICAL PROBLEM - General Chief Complaint: Fever Stated Complaint: chills fever Time Seen by Provider: 09/15/17 18:35 Source of Information: Reports: Patient History Limitations: Reports: No Limitations - History of Present Illness INITIAL COMMENTS - FREE TEXT/NARRATIVE: Patient was brought to the emergency department after three-day history of fever , body aches, SOB and chills. Patient has recently had a kidney stent placed around a kidney stone and is waiting surgery in the next couple weeks. He was placed on antibiotics (ceftin) which were completed 3 days ago (was a 12 day course). tried to get an appointment for him this afternoon however was unable to due to the above symptoms the pt presented to the ER. Patient denies feeling nausea, vomiting, or diarrhea. States that he does have blood in the urine which is been present since the kidney stone was found. Has a non productive cough with a history of COPD but feels the cough is more progressive than normal. No sputum production. Has SOB when ambulating or laying flat. Temperatures have not been taken at home but pt and spouse state he has felt "very hot" on and off the past 3 days. Onset: Gradual Quality: Reports: Pressure Associated Symptoms: Reports: Cough, Fever/Chills. Denies: cough w sputum, Malaise, Nausea/Vomiting, Shortness of Breath, Syncope, Weakness left flank Pain Score (Numeric/FACES): 5 - Related Data Allergies Allergy/AdvReac Type Severity Reaction Status Date / Time morphine Allergy Hives Verified 09/15/17 21:15 Home Meds: Home Meds Metoprolol Tartrate [Lopressor] 0.5 tab PO BID 06/02/14 [History] Warfarin [Coumadin] 5 mg PO ASDIRECTED 06/02/14 [History] atorvaSTATin [Lipitor] 10 mg PO BEDTIME 06/02/14 [History] Albuterol Sulfate [Albuterol Sulfate HFA] 2 inh INH Q4H PRN 06/03/14 [History] Nitroglycerin [Nitrostat] 0.4 mg SL ASDIRECTED PRN 06/03/14 [History] Tamsulosin [Tamsulosin 24 Hr] 0.4 mg PO ASDIRECTED 06/03/14 [History] Clopidogrel [Plavix] 75 mg PO DAILY 12/11/16 [History] Sertraline [Zoloft] 25 mg PO DAILY 12/11/16 [History] Acetaminophen [Tylenol Extra Strength] 500 mg PO Q4H PRN 03/29/17 [History] Acetaminophen/Diphenhydramine [Tylenol Pm Ex-Strength Caplet] 2 tab PO BEDTIME PRN 03/29/17 [History] Markel/Polymyx B Sulf/Dexameth [Maxitrol Eye Drops] 1 drop EYERT ASDIRECTED PRN 10/10 [History] Sodium Chloride [[place] Saline] 2 spray NS QID 03/29/17 [History] predniSONE [Prednisone] 15 mg PO DAILY 08/28/17 [History] Past Medical History HEENT History: Reports: Cataract, Impaired Vision, Macular Degeneration Cardiovascular History: Reports: Afib, CAD, Heart Failure, Heart Murmur, High Cholesterol, Hypertension, Pacemaker, PTCA, Other (See Below) Other Cardiovascular History: vertigo, sinoatrial node dysfunction Respiratory History: Reports: COPD, Other (See Below) (Lung cancer with radiation completed June 2017) Gastrointestinal History: Reports: GERD, Other (See Below) Other Gastrointestinal History: bilat ing. hernia, hx c. diff Genitourinary History: Reports: BPH, Renal Calculus, Other (See Below) Other Genitourinary History: CKD stage III Musculoskeletal History: Reports: Arthritis, Back Pain, Chronic, Neck Pain, Chronic, Other (See Below) Other Musculoskeletal History: bilat carpal tunnel syndrome, Neurological History: Reports: TIA Psychiatric History: Reports: None Endocrine/Metabolic History: Reports: Other (See Below) Other Endocrine/Metabolic History: hyperglycemia, Hematologic History: Reports: Anticoagulation Therapy Immunologic History: Reports: None Dermatologic History: Reports: Melanoma Other Dermatologic History: BILAT ARMS SKIN CA - Past Surgical History HEENT Surgical History: Reports: Cataract Surgery Cardiovascular Surgical History: Reports: Pacer, Percutaneous Transluminal Angioplasty, Other (See Below) Other Cardiovascular Surgeries/Procedures: remove infected pacemaker 02/2017 Male Surgical History: Reports: Other (See Below) Musculoskeletal Surgical History: Reports: Other (See Below) Social & Family History - Tobacco Use Smoking Status *Q: Never Smoker Years of Tobacco use: 30 Packs/Tins Daily: 1.5 Used Tobacco, but Quit: Yes Month/Year Tobacco Last Used: 1991 Second Hand Smoke Exposure: No - Caffeine Use Caffeine Use: Reports: Coffee - Alcohol Use Days Per Week of Alcohol Use: 0 - Recreational Drug Use Recreational Drug Use: No ED ROS GENERAL - Review of Systems Review Of Systems: See Below Constitutional: Reports: Fever, Chills, Weakness Respiratory: Reports: Shortness of Breath, Cough Cardiovascular: Denies: Chest Pain, Blood Pressure Problem, Claudication, Lightheadedness GI/Abdominal: Reports: No Symptoms : Reports: Hematuria, Pain, Other (stent placement 3 weeks ago ) Musculoskeletal: Reports: No Symptoms Skin: Reports: No Symptoms Neurological: Reports: No Symptoms Psychiatric: Reports: No Symptoms ED EXAM, GENERAL - Physical Exam Exam: See Below Exam Limited By: No Limitations General Appearance: Alert, WD/WN, Mild Distress Nose: Normal Inspection, Normal Mucosa Throat/Mouth: Normal Inspection, Normal Lips Head: Atraumatic, Normocephalic Neck: Normal Inspection, Supple Respiratory/Chest: No Respiratory Distress, Lungs Clear, Normal Breath Sounds, No Accessory Muscle Use, Chest Non-Tender Cardiovascular: Normal Peripheral Pulses, Regular Rate, Rhythm GI/Abdominal: Normal Bowel Sounds, Soft, No Distention, Tender (bilateral flank pain ). No: Distended, Rigid, Rebound, Abnormal Bowel Sounds, Hernia, Mass, Hepatomegaly (Male) Exam: No Hernia, Normal Inspection. No: Cremasteric Reflex, Hernia, Inguinal Lymphadenopathy, Penile Lesions, Rash, Scrotal Swelling, Scrotum Tenderness (L), Scrotum Tenderness (R), Suprapubic Fullness, Testicular Mass, Testicular Tenderness (L), Testicular Tenderness (R), Urethral Discharge Extremities: Normal Inspection, Normal Range of Motion Neurological: Alert, Oriented, Normal Gait Psychiatric: Normal Affect, Normal Mood Skin Exam: Warm, Dry EKG INTERPRETATION EKG Date: 09/15/17 Rhythm: A-Fib Course - Vital Signs Last Recorded V/S: Last Vital Signs Temp 39.1 C H 09/15/17 18:35 Pulse 113 H 09/15/17 18:35 Resp 20 09/15/17 18:35 BP 151/46 H 09/15/17 18:35 Pulse Ox 91 L 09/15/17 18:35 - Orders/Labs/Meds Orders: Active Orders 24 hr Category Date Time Status EKG 12 Lead [EKG Documentation Completion] [RC] ROUTINE Care 09/15/17 19:00 Active Abdomen Pelvis wo Cont [CT] Stat Exams 09/15/17 19:50 Taken Chest 1V Frontal [CR] Stat Exams 09/15/17 18:49 Taken CULTURE BLOOD [BC] Stat Lab 09/15/17 19:15 Received CULTURE BLOOD [BC] Stat Lab 09/15/17 19:20 Received Sodium Chloride 0.9% @ 125 MLS/HR (1000ml) Med 09/15/17 21:30 Ordered Sodium Chloride 0.9% [Normal Saline] 1,000 ml IV ASDIRECTED Vancomycin 1 gm Med 09/15/17 21:39 Ordered Sodium Chloride 0.9% [Normal Saline] 250 ml IV ONETIME Blood Culture x2 Reflex Set [OM.PC] Stat Oth 09/15/17 19:08 Ordered Medication Orders Sodium Chloride (Normal Saline) 1,000 mls @ 125 mls/hr IV ASDIRECTED PEYMAN Vancomycin HCl 1 gm/ Sodium (Chloride) 250 mls @ 250 mls/hr IV ONETIME ONE Stop: 09/15/17 22:38 Labs: Laboratory Tests 09/15/17 09/15/17 09/15/17 Range/Units 19:15 19:15 19:15 WBC 9.6 (4.0-10.0) x10^3/uL RBC 3.94 L (4.5-6.0) x10^6/uL Hgb 13.8 L (14.0-18.0) g/dL Hct 39.9 L (40.0-52.0) % MCV 101.3 H (78.0-93.0) fL MCH 35.0 H (26.0-32.0) pg MCHC 34.6 (32.0-36.0) g/dL RDW Coeff of Larry 13.1 (10.0-15.0) % Plt Count 111 L (130-400) x10^3/uL Neut % (Auto) 85.3 H (50.0-80.0) % Lymph % (Auto) 4.5 L (25.0-50.0) % [place] % (Auto) 8.4 (2.0-11.0) % Eos % (Auto) 1.7 (0.0-4.0) % Baso % (Auto) 0.1 L (0.2-1.2) % Sodium 140 (136-145) mmol/L Potassium 4.0 (3.5-5.1) mmol/L Chloride 103 (98-107) mmol/L Carbon Dioxide 28 (21-32) mmol/L BUN 22 H (7-18) mg/dL Creatinine 1.7 H (0.70-1.30) mg/dL Est Cr Clr Drug Dosing TNP Estimated GFR (MDRD) 38 Glucose 267 H (74-106) mg/dL Lactic Acid 2.8 H* (0.4-2.0) mmol/L Calcium 8.9 (8.5-10.1) mg/dL Corrected Calcium 9.94 (8.5-10.1) mg/dL Total Bilirubin 0.6 (0.2-1.0) mg/dL AST 16 (15-37) U/L ALT 24 (16-63) U/L Alkaline Phosphatase 110 (46-116) U/L Total Protein 6.6 (6.4-8.2) g/dL Albumin 2.7 L (3.4-5.0) g/dL Globulin 3.9 Albumin/Globulin Ratio 0.69 Urine Color (YELLOW) Urine Appearance (CLEAR) Urine pH (5.0-8.0) Ur Specific [place] Urine Protein (NEGATIVE) mg/dL Urine Glucose (UA) (NEGATIVE) mg/dL Urine Ketones (NEGATIVE) mg/dL Urine Occult Blood (NEGATIVE) Urine Nitrite (NEGATIVE) Urine Bilirubin (NEGATIVE) Urine Urobilinogen (0.2) EU/dL Ur Leukocyte Esterase (NEGATIVE) Urine RBC (NOT SEEN) /HPF Urine WBC (NOT SEEN) /HPF Ur Squamous Epith Cells (NEGATIVE) /HPF Urine Bacteria (NEGATIVE) /HPF Urine Mucus (NEGATIVE) /LPF 09/15/17 Range/Units 19:45 WBC (4.0-10.0) x10^3/uL RBC (4.5-6.0) x10^6/uL Hgb (14.0-18.0) g/dL Hct (40.0-52.0) % MCV (78.0-93.0) fL MCH (26.0-32.0) pg MCHC (32.0-36.0) g/dL RDW Coeff of Larry (10.0-15.0) % Plt Count (130-400) x10^3/uL Neut % (Auto) (50.0-80.0) % Lymph % (Auto) (25.0-50.0) % [place] % (Auto) (2.0-11.0) % Eos % (Auto) (0.0-4.0) % Baso % (Auto) (0.2-1.2) % Sodium (136-145) mmol/L Potassium (3.5-5.1) mmol/L Chloride (98-107) mmol/L Carbon Dioxide (21-32) mmol/L BUN (7-18) mg/dL Creatinine (0.70-1.30) mg/dL Est Cr Clr Drug Dosing Estimated GFR (MDRD) Glucose (74-106) mg/dL Lactic Acid (0.4-2.0) mmol/L Calcium (8.5-10.1) mg/dL Corrected Calcium (8.5-10.1) mg/dL Total Bilirubin (0.2-1.0) mg/dL AST (15-37) U/L ALT (16-63) U/L Alkaline Phosphatase (46-116) U/L Total Protein (6.4-8.2) g/dL Albumin (3.4-5.0) g/dL Globulin Albumin/Globulin Ratio Urine Color Red H (YELLOW) Urine Appearance Turbid H (CLEAR) Urine pH 5.5 (5.0-8.0) Ur Specific [place] 1.020 Urine Protein >=300 H (NEGATIVE) mg/dL Urine Glucose (UA) 250 H (NEGATIVE) mg/dL Urine Ketones 15 H (NEGATIVE) mg/dL Urine Occult Blood Large H (NEGATIVE) Urine Nitrite Negative (NEGATIVE) Urine Bilirubin Moderate H (NEGATIVE) Urine Urobilinogen 1.0 (0.2) EU/dL Ur Leukocyte Esterase Trace H (NEGATIVE) Urine RBC Packed (NOT SEEN) /HPF Urine WBC 5-10 H (NOT SEEN) /HPF Ur Squamous Epith Cells Not seen (NEGATIVE) /HPF Urine Bacteria Moderate H (NEGATIVE) /HPF Urine Mucus Not seen (NEGATIVE) /LPF Meds: Medications Generic Name Dose Route Start Last Admin Trade Name Freq PRN Reason Stop Dose Admin Sodium Chloride 1,000 mls @ 125 mls/hr 09/15/17 21:30 Normal Saline IV ASDIRECTED PEYMAN Vancomycin HCl 1 gm/ Sodium 250 mls @ 250 mls/hr 09/15/17 21:39 Chloride IV 09/15/17 22:38 ONETIME ONE Discontinued Medications Generic Name Dose Route Start Last Admin Trade Name Maikel PRN Reason Stop Dose Admin Acetaminophen 650 mg 09/15/17 19:20 09/15/17 20:13 Tylenol PO 09/15/17 19:21 650 mg NOW ONE Administration Ceftriaxone Sodium 1 gm 09/15/17 19:18 09/15/17 19:25 Rocephin IVPUSH 09/15/17 19:19 1 gm ONETIME ONE Administration Hydromorphone HCl 1 mg 09/15/17 21:47 Dilaudid IVPUSH 09/15/17 21:48 ONETIME ONE Vancomycin HCl 1,250 mg/ 250 mls @ 200 mls/hr 09/15/17 19:24 Sodium Chloride IV 09/15/17 20:38 ONETIME ONE Vancomycin HCl 1,250 mg/ 250 mls @ 200 mls/hr 09/15/17 21:22 Sodium Chloride IV 09/15/17 22:36 ONETIME ONE Ondansetron HCl 4 mg 09/15/17 21:47 Zofran IVPUSH 09/15/17 21:48 ONETIME ONE Departure - Departure Time of Disposition: 22:15 Disposition: DC/Tfer to Acute Hospital 02 Condition: Fair Clinical Impression: Renal stone, Lung mass, SOB (shortness of breath), Tachycardia, Fever and chills Sepsis Qualifiers: Sepsis type: sepsis due to unspecified organism Qualified Code(s): A41.9 - Sepsis, unspecified organism - Discharge Information Referrals: Mary Gonzalez MD [Primary Care Provider] - Forms: ED Department Discharge, Interfacility Transfer EMTALA - My Orders Last 24 Hours: My Active Orders 09/15/17 18:49 Chest 1V Frontal [CR] Stat 09/15/17 19:00 EKG 12 Lead [EKG Documentation Completion] [RC] ROUTINE 09/15/17 19:08 Blood Culture x2 Reflex Set [OM.PC] Stat 09/15/17 19:15 CULTURE BLOOD [BC] Stat 09/15/17 19:20 CULTURE BLOOD [BC] Stat 09/15/17 19:50 Abdomen Pelvis wo Cont [CT] Stat 09/15/17 21:30 Sodium Chloride 0.9% @ 125 MLS/HR (1000ml) Sodium Chloride 0.9% [Normal Saline] 1,000 ml IV ASDIRECTED 09/15/17 21:39 Vancomycin 1 gm Sodium Chloride 0.9% [Normal Saline] 250 ml IV ONETIME - Assessment/Plan Last 24 Hours: My Active Orders 09/15/17 18:49 Chest 1V Frontal [CR] Stat 09/15/17 19:00 EKG 12 Lead [EKG Documentation Completion] [RC] ROUTINE 09/15/17 19:08 Blood Culture x2 Reflex Set [OM.PC] Stat 09/15/17 19:15 CULTURE BLOOD [BC] Stat 09/15/17 19:20 CULTURE BLOOD [BC] Stat 09/15/17 19:50 Abdomen Pelvis wo Cont [CT] Stat 09/15/17 21:30 Sodium Chloride 0.9% @ 125 MLS/HR (1000ml) Sodium Chloride 0.9% [Normal Saline] 1,000 ml IV ASDIRECTED 09/15/17 21:39 Vancomycin 1 gm Sodium Chloride 0.9% [Normal Saline] 250 ml IV ONETIME Plan: 1. Labs with blood cultures completed in ER and reviewed with the pt and spouse 2. Xray completed and results reviewed with the pt and spouse 3. CT scan completed and results reviewed with the pt and spouse 4. Antibiotics started in ER related to fever, tachycardia, and increased resp rate 5. Tylenol given for fever 6. Pt denies needing any pain medication at this time 7. consultation completed with [facility] who believe the pt needs to be admitted for sepsis and have infectious disease consulted for further evaluation of source 8. Consultation completed with [facility] Dr. Ludwig who has agreed in the transfer and further management of the pt. 9. Dilaudid given for increasing pain in left flank region
[2017-09-15] MEDS ORDERED: Sodium Chloride 0.9% 1,000 ML IV SCH (21:30)
[2017-09-15] MEDS ORDERED: HYDROmorphone 1 MG/ML Syringe IVPUSH ONE (21:47)
[2017-09-15] MEDS ORDERED: Ondansetron 4 MG/2 ML SDV IVPUSH ONE (21:47)
[2017-09-15 22:13] VITALS: BP 130/88
== END 2017-09-15 22:45 | disposition short-term general hospital (02) ==
LOC: VM.ED 18:33
DX: A41.9 Sepsis, unspecified organism (principal); N20.0 Calculus of kidney; R91.8 Other nonspecific abnormal finding of lung field; R06.02 Shortness of breath; R00.0 Tachycardia, unspecified; I13.0 Hypertensive heart and chronic kidney disease with heart failure and stage 1 through stage 4 chronic kidney disease, or unspecified chronic kidney disease; I50.9 Heart failure, unspecified; N18.3 Chronic kidney disease, stage 3 (moderate); I25.10 Atherosclerotic heart disease of native coronary artery without angina pectoris; E78.00 Pure hypercholesterolemia, unspecified; Z88.5 Allergy status to narcotic agent; Z79.899 Other long term (current) drug therapy; Z87.891 Personal history of nicotine dependence
CPT/HCPCS: 36415; 71045; 74176; 80053; 81001; 83605; 85025; 87040; 87804; 93005; 96365; 96375; 99285; A9270; J0696; J1170; J2405; J3370; J7030; J7050; 93010

== ENCOUNTER 2017-10-01 09:50 | Emergency (ER) | payer MEDICARE, BC ==
[2017-10-01 10:16] VITALS: BP 96/52
[2017-10-01] MEDS ORDERED: diphenhydrAMINE 25 MG Cap PO ONE (10:54)
--- NOTE | 2017-10-01 11:02 | EDM.PDOC ---
ED HPI GENERAL MEDICAL PROBLEM - General Chief Complaint: Allergic Reaction Stated Complaint: RASH/ITCHING Time Seen by Provider: 10/01/17 10:25 Source of Information: Reports: Patient, Family History Limitations: Reports: No Limitations - History of Present Illness INITIAL COMMENTS - FREE TEXT/NARRATIVE: Patient and report an allergic reaction that started three days ago. He has newly started magnesium, which was started after he had the rash, but had started taking cipro for kidney infection and the rash started about 2 days after he began the cipro. Rash has continued to worsen and be more itchy. He has no other complaints at this time. 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 This was removed and he refused to have it replaced. He also has a history of lung cancer, heart valve dysfunction, chf, copd, a-fib, chronic kidney stones and multiple kidney/bladder infections. At the end of my interview he asked if I had a pill that could kill him. Onset: Gradual Onset Date: 09/28/17 Duration: Getting Worse Location: Reports: Generalized Severity: Moderate Associated Symptoms: Reports: No Other Symptoms Treatments [facility]: Reports: Other Medication(s) (benadryl) - Related Data Allergies Allergy/AdvReac Type Severity Reaction Status Date / Time ciprofloxacin [From Cipro] Allergy Rash Verified 10/01/17 10:54 morphine Allergy Hives Verified 10/01/17 10:16 Home Meds: Home Meds Metoprolol Tartrate [Lopressor] 0.5 tab PO BID 06/02/14 [History] Warfarin [Coumadin] 5 mg PO ASDIRECTED 06/02/14 [History] atorvaSTATin [Lipitor] 10 mg PO BEDTIME 06/02/14 [History] Albuterol Sulfate [Albuterol Sulfate HFA] 2 inh INH Q4H PRN 06/03/14 [History] Nitroglycerin [Nitrostat] 0.4 mg SL ASDIRECTED PRN 06/03/14 [History] Tamsulosin [Tamsulosin 24 Hr] 0.4 mg PO ASDIRECTED 06/03/14 [History] Clopidogrel [Plavix] 75 mg PO DAILY 12/11/16 [History] Sertraline [Zoloft] 25 mg PO DAILY 12/11/16 [History] Acetaminophen [Tylenol Extra Strength] 500 mg PO Q4H PRN 03/29/17 [History] Sodium Chloride [[place] Saline] 2 spray NS QID 03/29/17 [History] Ciprofloxacin HCl [Cipro] 250 mg BID 10/01/17 [History] Finasteride 5 mg DAILY 10/01/17 [History] Furosemide 20 mg DAILY 10/01/17 [History] Past Medical History HEENT History: Reports: Cataract, Impaired Vision, Macular Degeneration Cardiovascular History: Reports: Afib, CAD, Heart Failure, Heart Murmur, High Cholesterol, Hypertension, Pacemaker, PTCA, Other (See Below) Other Cardiovascular History: vertigo, sinoatrial node dysfunction Respiratory History: Reports: COPD, Other (See Below) Other Respiratory History: on home O2 Gastrointestinal History: Reports: GERD, Other (See Below) Other Gastrointestinal History: bilat ing. hernia, hx c. diff Genitourinary History: Reports: BPH, Renal Calculus, Other (See Below) Other Genitourinary History: CKD stage III Musculoskeletal History: Reports: Arthritis, Back Pain, Chronic, Neck Pain, Chronic, Other (See Below) Other Musculoskeletal History: bilat carpal tunnel syndrome, Neurological History: Reports: TIA Psychiatric History: Reports: None Endocrine/Metabolic History: Reports: Other (See Below) Other Endocrine/Metabolic History: hyperglycemia, Hematologic History: Reports: Anticoagulation Therapy Immunologic History: Reports: None Dermatologic History: Reports: Melanoma Other Dermatologic History: BILAT ARMS SKIN CA - Past Surgical History HEENT Surgical History: Reports: Cataract Surgery Cardiovascular Surgical History: Reports: Pacer, Percutaneous Transluminal Angioplasty, Other (See Below) Other Cardiovascular Surgeries/Procedures: remove infected pacemaker 02/2017 Male Surgical History: Reports: Other (See Below) Other Male Surgeries/Procedures: stent in ureter Musculoskeletal Surgical History: Reports: Other (See Below) Social & Family History - Tobacco Use Smoking Status *Q: Unknown Ever Smoked Years of Tobacco use: 30 Packs/Tins Daily: 1.5 Used Tobacco, but Quit: Yes Month/Year Tobacco Last Used: 1991 Second Hand Smoke Exposure: No - Caffeine Use Caffeine Use: Reports: Coffee - Alcohol Use Days Per Week of Alcohol Use: 0 - Recreational Drug Use Recreational Drug Use: No ED ROS ALLERGIC REACTION - Review of Systems Review Of Systems: See Below Constitutional: Reports: No Symptoms HEENT: Reports: No Symptoms Respiratory: Reports: No Symptoms Cardiovascular: Reports: No Symptoms Endocrine: Reports: No Symptoms GI/Abdominal: Reports: No Symptoms : Reports: No Symptoms Musculoskeletal: Reports: No Symptoms Skin: Reports: Rash, Urticaria Neurological: Reports: No Symptoms Psychiatric: Reports: No Symptoms Hematologic/Lymphatic: Reports: No Symptoms Immunologic: Reports: No Symptoms ED EXAM GENERAL NO PERIP PULSE - Physical Exam Exam: See Below Exam Limited By: No Limitations General Appearance: Alert, WD/WN, Moderate Distress Eye Exam: Bilateral Eye: EOMI, PERRL Head: Atraumatic, Normocephalic Neck: Normal Inspection, Supple, Non-Tender, Full Range of Motion Respiratory/Chest: No Respiratory Distress, Lungs Clear, Normal Breath Sounds, No Accessory Muscle Use, Chest Non-Tender Cardiovascular: Normal Peripheral Pulses, Regular Rate, Rhythm, No Edema, No Gallop, No JVD, No Murmur, No Rub GI/Abdominal: Normal Bowel Sounds, Soft, Non-Tender, No Organomegaly, No Distention, No Abnormal Bruit, No Mass Extremities: Normal Inspection, Normal Range of Motion, Non-Tender, Normal Capillary Refill, No Pedal Edema Neurological: Alert, Oriented, CN II-XII Intact, Normal Cognition, Normal Gait, Normal Reflexes, No Motor/Sensory Deficits Skin Exam: Rash (generalized systemic rash from head to toe. Macular in appearance. Patient scratching during entire H and P process) Lymphatic: No Adenopathy Course - Vital Signs Last Recorded V/S: Last Vital Signs Temp 36.9 C 10/01/17 10:00 Pulse 108 H 10/01/17 10:00 Resp 16 10/01/17 10:00 BP 96/52 L 10/01/17 10:00 Pulse Ox 91 L 10/01/17 10:00 - Orders/Labs/Meds Orders: Active Orders 24 hr Category Date Time Status diphenhydrAMINE [Benadryl] Med 10/01/17 10:54 Once 25 mg PO ONETIME ONE - Re-Assessments/Exams Free Text/Narrative Re-Assessment/Exam: 10/01/17 11:07 Patient given additional 25 mg of benadryl, sent with instructions to take up to 50 mg three times daily. Departure - Departure Time of Disposition: 11:15 Disposition: Home, Self-Care 01 Condition: Good Clinical Impression: Allergic reaction caused by a drug - Discharge Information Instructions: Drug Rash, Allergies, Adult, [id number] Referrals: Mary Gonzalez MD [Primary Care Provider] - Additional Instructions: It does appear you are having an allergic reaction to the cipro you have been taking. Please stop taking the cipro and let your doctor know at the clinic about the reaction, and also let the doctor know on Monday that you ended the cipro two days prior because of the rash. You can take 50 mg of benadryl 3 times a day for the itching and hives. If the rash is not better by tomorrow, you should follow up with your primary doctor. Please call with any questions or concerns. - Problem List & Annotations (1) Allergic reaction caused by a drug SNOMED Code(s): 766088502 Code(s): T78.40XA - ALLERGY, UNSPECIFIED, INITIAL ENCOUNTER Status: Acute Priority: Low Current Visit: Yes Qualifiers: Encounter type: initial encounter Qualified Code(s): T78.40XA - Allergy, unspecified, initial encounter - Problem List Review Problem List Initiated/Reviewed/Updated: Yes - My Orders Last 24 Hours: My Active Orders 10/01/17 10:54 diphenhydrAMINE [Benadryl] 25 mg PO ONETIME ONE - Assessment/Plan Last 24 Hours: My Active Orders 10/01/17 10:54 diphenhydrAMINE [Benadryl] 25 mg PO ONETIME ONE Assessment:: allergic reaction to drug Plan: It does appear you are having an allergic reaction to the cipro you have been taking. Please stop taking the cipro and let your doctor know at the clinic about the reaction, and also let the doctor know on Monday that you ended the cipro two days prior because of the rash. You can take 50 mg of benadryl 3 times a day for the itching and hives. If the rash is not better by tomorrow, you should follow up with your primary doctor. Please call with any questions or concerns.
== END 2017-10-01 11:15 | disposition home or self-care (01) ==
LOC: VM.ED 09:50
DX: L27.0 Generalized skin eruption due to drugs and medicaments taken internally (principal); I13.0 Hypertensive heart and chronic kidney disease with heart failure and stage 1 through stage 4 chronic kidney disease, or unspecified chronic kidney disease; I50.9 Heart failure, unspecified; N18.3 Chronic kidney disease, stage 3 (moderate); I48.91 Unspecified atrial fibrillation; E78.00 Pure hypercholesterolemia, unspecified; K21.9 Gastro-esophageal reflux disease without esophagitis; Z87.891 Personal history of nicotine dependence; Z88.1 Allergy status to other antibiotic agents; Z79.01 Long term (current) use of anticoagulants; Z88.5 Allergy status to narcotic agent; Z79.899 Other long term (current) drug therapy
CPT/HCPCS: 99283; A9270

== ENCOUNTER 2019-04-19 12:01 | Inpatient (IN) | payer BC, MEDICARE, OTHER ==
[2019-04-19] MEDS ORDERED: GLYCOPYRROLATE 1 MG PO PRN (13:36)
[2019-04-19] MEDS ORDERED: DIPHENHYDRAMINE 25 MG PO PRN (13:36)
[2019-04-19] MEDS ORDERED: Nitroglycerin 0.4 MG Tab.SL (OWN SUPPLY) SL PRN (13:36)
[2019-04-19] MEDS ORDERED: Albuterol HFA 18 Gm Inhaler (OWN SUPPLY) INH PRN (13:36)
[2019-04-19] MEDS ORDERED: oxyCODONE 5 MG Tab (OWN SUPPLY) PO PRN (13:36)
[2019-04-19] MEDS: SODIUM CHLORIDE NS SCH ×2 (15:03→19:41)
[2019-04-19] MEDS: [UNRECOGNIZED DRUG - OTHER] NS SCH ×2 (15:03→19:41)
[2019-04-19] MEDS ORDERED: ACYCLOVIR 400 MG PO ONE (17:00)
[2019-04-19] MEDS: METOPROLOL TARTRATE PO SCH (17:19)
[2019-04-19] MEDS: MAGNESIUM OXIDE 400 MG PO SCH (17:20)
[2019-04-19] MEDS: Acetaminophen/Diphenhydramine 500-25 MG Tab PO SCH (19:42)
[2019-04-19] MEDS: TRIAMCINOLONE ACETONIDE 0.5% TOP SCH (19:42)
[2019-04-19] MEDS ORDERED: [UNRECOGNIZED DRUG - OTHER] PO SCH (20:00)
[2019-04-19] MEDS ORDERED: DOCUSATE SODIUM PO SCH (20:00)
[2019-04-19] MEDS ORDERED: TRIAMCINOLONE ACETONIDE 0.5% TOP SCH (20:00)
--- NOTE | 2019-04-19 21:06 | HP ---
CHIEF COMPLAINT: Weakness on hospice. HISTORY OF PRESENT ILLNESS: The patient is an 88-year-old patient of mine, who is on hospice, who has been having his as a caregiver, however, his has gotten quite fatigued with caregiving and needs a break and so the patient is deemed okay after visiting with [facility] to come on to swing bed self- pay with hospice following. The patient is chronically on oxygen. He has started to get a new rash on his right side of his chest, which does seem to be quite painful for him. He is not certain about the details exactly of when it has occurred. The patient otherwise offers no immediate concerns. He is noted to be quite weak and does require assistance with ambulation and cares. MEDICATIONS: The patient is currently on are metoprolol 25 mg half a pill twice a day, tamsulosin 0.4 mg 1 pill daily, nitroglycerin 0.4 sublingual every 5 minutes x3 p.r.n. chest pain, albuterol MDI 2 puffs q.4 hours p.r.n., Zoloft 25 mg 1 pill daily, Plavix 75 mg 1 pill daily, [place] nasal spray/drops 4 times a day, furosemide 20 mg 1 pill daily, Senna Plus 1 pill at bedtime, glycopyrrolate 1 mg q.8 hours p.r.n., oxycodone 5 mg q.4 hours p.r.n., Benadryl 25 mg 1 q.6 hours p.r.n., triamcinolone 0.5% cream b.i.d., lorazepam 0.5 mg half a pill every 4 hours as needed, Tylenol PM Extra Strength 1 pill at bedtime, magnesium oxide 400 mg 1 pill twice a day. ALLERGIES: Morphine causes sedation and hives as well as Cipro causes hives. PAST MEDICAL HISTORY: The patient has adenocarcinoma of his lung diagnosed on 01/25/2017 and no further care was given, but due to his other chronic health problems he was felt to be end of life. He has had anxiety, depression, aortic stenosis, atrial flutter on 09/16/2010. He was switched to Plavix with a coronary stent from 05/2012. He has had benign positional vertigo, bilateral carotid artery disease. In 2004, he had a TIA, had bilateral carpal tunnel syndrome, blindness on 12/11/2016 occurred with epistaxis with right retinal hemorrhage and permanent loss of right eye vision. Left vision is moderately impaired with macular degeneration. He has had BPH. He has had previous C. difficile diarrhea in 2014. He has had a kidney stone left in 2010. In 2012, he had ESWL. He has had cardiac pacemaker placed on 02/02/2011. He had tachy- karan syndrome. He has had cataract surgery, chronic diastolic heart failure. Echo on 11/13/2012. In 2014, EF was 65%. He has had chronic kidney disease stage 3. Coronary artery disease in 2006. He had an IL. In 05/2012, he had an IL with PCI and 3 drug-eluting stents. On 12/07/2016, PTCA with stenting and a Resolute drug-eluting stent, placed on Plavix, presumably for a year. 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 He has been on oxygen since 09/12/2017, had hypertension, gait abnormality. He has had rectal bleeding on 03/04/2013 that was felt to be observed. He has had hearing disorder. He has had hyperglycemia, hypertensive emergency in 2016. He has had an infected pacemaker on 03/14/2017. He has had an inguinal hernia on the left, macular degenerations, cerebrovascular disease with TIA in 2004. In 2010, he had transient expressive aphasia with atrial fibrillation with RVR. On 02/16/2013, left arm weakness and balance problem. Left eye visual field loss on 11/16/2016. Had aortic valve stenosis. Aortic gradient was 45 on 06/02/2015. Paroxysmal atrial fibrillation, had polymyalgia rheumatica, had primary insomnia, hypercholesterolemia, rectal sheath hematoma, has had severe aortic stenosis, squamous cell skin cancer, actinic keratosis, ulnar neuropathy of both upper extremities, ureteral stones. PAST SURGICAL HISTORY: Appendectomy. He has had Avastin injections into his eye many times, back surgery in 1974, cardiac cath, cholecystectomy, coronary angioplasty with SHADI in 11/2016, cystoscopies many times with stent placements in left ureteral area 2017 as well as 2012. 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 He has had cataract surgery bilaterally. He has had a pacemaker in 2010, spine surgery with 3 disk fusion in 1996. He has had tendon sheath of his finger. He has had ureterolithotomy on the lower third of his left ureter in . He has had ureteroscope with stone manipulation on the right on 03/18/2013. FAMILY MEDICAL HISTORY: Mother had a heart attack. Mother had colon cancer. Brothers has had pancreatic cancer. Sisters had a heart attack. Another sister has had lung cancer. SOCIAL HISTORY: The patient quit smoking in 1995. Prior to that, he smoked 2 packs a day. He does not drink alcohol. Lives in [place]. He is . 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 REVIEW OF SYSTEMS: The patient is noted to be weak. He does have pain on his right side. Has been noted to have some blood in his urine. Denies coughing or shortness of breath. Uses portable oxygen. PHYSICAL EXAMINATION: Vital Signs: Show that his height is 1.6 m estimated, temperature is 36.4, pulse is 110, blood pressure is 106/66, respirations are 20, sats are 94% on 2 L. Skin: He does have diffuse erythema on his back, which seems to be more of a heat rash or contact dermatitis on his right flank area, though he has grew vesicles on both the mid chest wall area as well as the lower chest wall area on the right. HEENT: The patient's eyes have blindness. Mucous membranes are noted to be somewhat dry. Heart: Irregularly irregular. Lungs: Have diminished breath sounds on bases. Abdomen: Soft and nontender. No hepatosplenomegaly. Lower Extremities: No edema. Neuro: The patient is very hard of hearing. He has poor vision. Psych: The patient in the past has had problems with depression as well as anxiety. IMPRESSION: 1. Deconditioning due to lung cancer. 2. Congestive heart failure. 3. Chronic atrial fibrillation. 4. Cerebrovascular disease. 5. Chronic diastolic heart failure. 6. Most likely shingles of right flank. 7. Severe aortic stenosis. 8. Hypertension. 9. Chronic anxiety and depression. PLAN: The patient will be placed on swing bed self-pay with hospice following along care. Hospice is going to contact their registered medical transcriptionist to see if they can treat his shingles right now and they do have pain medications at their disposal. Anticipate stay to be 5 days or less unless is no longer to resume care and he may need to look at going to penitentiary care and to note he did have a previous history of C. diff. GM04/19/2019 15:07:54 MODL: 04/19/2019 20:57:23 /[id number] MTDD
[2019-04-19] MEDS: oxyCODONE 5 MG Tab (OWN SUPPLY) PO SCH (21:24)
[2019-04-19] MEDS: LORazepam 0.5 MG Tab (OWN SUPPLY) PO PRN (21:27)
[2019-04-19] MEDS: ACYCLOVIR 400 MG PO SCH (23:21)
[2019-04-20] MEDS: oxyCODONE 5 MG Tab (OWN SUPPLY) PO PRN ×2 (00:54→17:32)
[2019-04-20] MEDS: LORazepam 0.5 MG Tab (OWN SUPPLY) PO PRN ×3 (00:55→22:15)
[2019-04-20] MEDS: oxyCODONE 5 MG Tab (OWN SUPPLY) PO SCH ×4 (04:53→22:15)
[2019-04-20] MEDS: Clopidogrel 75 MG Tab (OWN SUPPLY) PO SCH (09:30)
[2019-04-20] MEDS: MAGNESIUM OXIDE 400 MG PO SCH ×2 (09:30→17:31)
[2019-04-20] MEDS: FUROSEMIDE 20 MG PO SCH (09:30)
[2019-04-20] MEDS: METOPROLOL TARTRATE PO SCH ×2 (09:31→17:31)
[2019-04-20] MEDS: TAMSULOSIN 0.4 MG PO SCH (09:31)
[2019-04-20] MEDS: SERTRALINE 25 MG PO SCH (09:36)
[2019-04-20] MEDS: ACYCLOVIR 400 MG PO SCH ×3 (09:39→23:27)
[2019-04-20] MEDS: SODIUM CHLORIDE NS SCH ×4 (09:40→20:34)
[2019-04-20] MEDS: TRIAMCINOLONE ACETONIDE 0.5% TOP SCH ×2 (09:40→20:34)
[2019-04-20] MEDS: [UNRECOGNIZED DRUG - OTHER] NS SCH ×4 (09:40→20:34)
[2019-04-20] MEDS: Acetaminophen/Diphenhydramine 500-25 MG Tab PO SCH (20:35)
[2019-04-21] MEDS: LORazepam 0.5 MG Tab (OWN SUPPLY) PO PRN ×3 (01:33→22:26)
[2019-04-21] MEDS: oxyCODONE 5 MG Tab (OWN SUPPLY) PO PRN (01:34)
[2019-04-21] MEDS: oxyCODONE 5 MG Tab (OWN SUPPLY) PO SCH ×4 (04:57→22:26)
[2019-04-21] MEDS: SODIUM CHLORIDE NS SCH ×4 (08:52→20:33)
[2019-04-21] MEDS: [UNRECOGNIZED DRUG - OTHER] NS SCH ×4 (08:52→20:33)
[2019-04-21] MEDS: MAGNESIUM OXIDE 400 MG PO SCH ×2 (08:53→17:30)
[2019-04-21] MEDS: METOPROLOL TARTRATE PO SCH ×2 (08:53→17:30)
[2019-04-21] MEDS: Clopidogrel 75 MG Tab (OWN SUPPLY) PO SCH (08:54)
[2019-04-21] MEDS: FUROSEMIDE 20 MG PO SCH (08:54)
[2019-04-21] MEDS: SERTRALINE 25 MG PO SCH (08:55)
[2019-04-21] MEDS: ACYCLOVIR 400 MG PO SCH ×3 (08:55→23:09)
[2019-04-21] MEDS: TRIAMCINOLONE ACETONIDE 0.5% TOP SCH ×2 (08:59→20:32)
[2019-04-21] MEDS: TAMSULOSIN 0.4 MG PO SCH (08:59)
[2019-04-21] MEDS: Acetaminophen/Diphenhydramine 500-25 MG Tab PO SCH (20:31)
[2019-04-22] MEDS: oxyCODONE 5 MG Tab (OWN SUPPLY) PO SCH ×4 (04:40→22:27)
[2019-04-22] MEDS: oxyCODONE 5 MG Tab (OWN SUPPLY) PO PRN (08:20)
[2019-04-22] MEDS: TAMSULOSIN 0.4 MG PO SCH (08:22)
[2019-04-22] MEDS: Clopidogrel 75 MG Tab (OWN SUPPLY) PO SCH (08:22)
[2019-04-22] MEDS: FUROSEMIDE 20 MG PO SCH (08:22)
[2019-04-22] MEDS: SERTRALINE 25 MG PO SCH (08:22)
[2019-04-22] MEDS: METOPROLOL TARTRATE PO SCH ×2 (08:23→17:59)
[2019-04-22] MEDS: [UNRECOGNIZED DRUG - OTHER] NS SCH ×4 (08:24→20:51)
[2019-04-22] MEDS: SODIUM CHLORIDE NS SCH ×4 (08:24→20:51)
[2019-04-22] MEDS: MAGNESIUM OXIDE 400 MG PO SCH ×2 (08:24→18:00)
[2019-04-22] MEDS: ACYCLOVIR 400 MG PO SCH ×3 (08:24→23:11)
[2019-04-22] MEDS: TRIAMCINOLONE ACETONIDE 0.5% TOP SCH ×2 (08:25→20:51)
[2019-04-22] MEDS ORDERED: Dexamethasone/Neomycin/Polymyxin B Ophth Susp 5 ML Bottle EYEBOTH PRN (14:29)
[2019-04-22] MEDS: Hypromellose 0.3% Ophth Soln 15 ML Bottle EYEBOTH SCH ×2 (15:05→20:51)
[2019-04-22] MEDS: Acetaminophen/Diphenhydramine 500-25 MG Tab PO SCH (20:52)
[2019-04-23] MEDS: oxyCODONE 5 MG Tab (OWN SUPPLY) PO SCH ×4 (04:38→22:44)
[2019-04-23] MEDS: Clopidogrel 75 MG Tab (OWN SUPPLY) PO SCH (08:20)
[2019-04-23] MEDS: SERTRALINE 25 MG PO SCH (08:20)
[2019-04-23] MEDS: FUROSEMIDE 20 MG PO SCH (08:21)
[2019-04-23] MEDS: METOPROLOL TARTRATE PO SCH ×2 (08:21→17:03)
[2019-04-23] MEDS: MAGNESIUM OXIDE 400 MG PO SCH ×2 (08:22→17:04)
[2019-04-23] MEDS: ACYCLOVIR 400 MG PO SCH ×3 (08:22→23:08)
[2019-04-23] MEDS: SODIUM CHLORIDE NS SCH ×4 (08:23→21:23)
[2019-04-23] MEDS: [UNRECOGNIZED DRUG - OTHER] NS SCH ×4 (08:23→21:23)
[2019-04-23] MEDS: TAMSULOSIN 0.4 MG PO SCH (08:24)
[2019-04-23] MEDS: Hypromellose 0.3% Ophth Soln 15 ML Bottle EYEBOTH SCH ×2 (08:24→21:22)
[2019-04-23] MEDS: TRIAMCINOLONE ACETONIDE 0.5% TOP SCH ×2 (08:25→21:23)
[2019-04-23] MEDS: Acetaminophen/Diphenhydramine 500-25 MG Tab PO SCH (21:22)
[2019-04-23] MEDS: LORazepam 0.5 MG Tab (OWN SUPPLY) PO PRN (22:45)
[2019-04-24] MEDS: oxyCODONE 5 MG Tab (OWN SUPPLY) PO SCH ×4 (04:29→22:25)
[2019-04-24] MEDS: METOPROLOL TARTRATE PO SCH ×2 (08:39→17:26)
[2019-04-24] MEDS: FUROSEMIDE 20 MG PO SCH (08:40)
[2019-04-24] MEDS: Hypromellose 0.3% Ophth Soln 15 ML Bottle EYEBOTH SCH ×2 (08:40→20:07)
[2019-04-24] MEDS: Clopidogrel 75 MG Tab (OWN SUPPLY) PO SCH (08:40)
[2019-04-24] MEDS: SERTRALINE 25 MG PO SCH (08:40)
[2019-04-24] MEDS: TAMSULOSIN 0.4 MG PO SCH (08:41)
[2019-04-24] MEDS: ACYCLOVIR 400 MG PO SCH ×3 (08:41→23:30)
[2019-04-24] MEDS: SODIUM CHLORIDE NS SCH ×4 (08:42→20:07)
[2019-04-24] MEDS: MAGNESIUM OXIDE 400 MG PO SCH ×2 (08:42→17:26)
[2019-04-24] MEDS: TRIAMCINOLONE ACETONIDE 0.5% TOP SCH ×2 (08:42→20:08)
[2019-04-24] MEDS: [UNRECOGNIZED DRUG - OTHER] NS SCH ×4 (08:42→20:07)
[2019-04-24] MEDS: LORazepam 0.5 MG Tab (OWN SUPPLY) PO PRN ×2 (16:44→22:25)
[2019-04-24] MEDS: Acetaminophen/Diphenhydramine 500-25 MG Tab PO SCH (20:07)
[2019-04-25] MEDS: oxyCODONE 5 MG Tab (OWN SUPPLY) PO SCH (03:31)
[2019-04-25 05:43] VITALS: BP 130/58; PULSE 90
[2019-04-25] MEDS: TAMSULOSIN 0.4 MG PO SCH (07:49)
[2019-04-25] MEDS: METOPROLOL TARTRATE PO SCH (07:49)
[2019-04-25] MEDS: MAGNESIUM OXIDE 400 MG PO SCH (07:50)
[2019-04-25] MEDS: SERTRALINE 25 MG PO SCH (07:50)
[2019-04-25] MEDS: Clopidogrel 75 MG Tab (OWN SUPPLY) PO SCH (07:50)
[2019-04-25] MEDS: FUROSEMIDE 20 MG PO SCH (07:50)
[2019-04-25] MEDS: Hypromellose 0.3% Ophth Soln 15 ML Bottle EYEBOTH SCH (07:50)
[2019-04-25] MEDS: SODIUM CHLORIDE NS SCH (07:51)
[2019-04-25] MEDS: [UNRECOGNIZED DRUG - OTHER] NS SCH (07:51)
[2019-04-25] MEDS: ACYCLOVIR 400 MG PO SCH (07:51)
[2019-04-25] MEDS: TRIAMCINOLONE ACETONIDE 0.5% TOP SCH (07:52)
--- NOTE | 2019-04-25 17:04 | DISCH ---
PRIMARY DIAGNOSES: 1. Weakness related to cancer. 2. Lung cancer, unresectable or untreated, metastatic. 3. Herpes zoster of right chest. 4. Congestive heart failure. 5. Chronic atrial fibrillation. 6. Cerebrovascular disease. 7. Chronic diastolic heart failure. 8. Severe aortic stenosis. 9. Hypertension. 10.Chronic anxiety and depression. SUMMARY OF HISTORY AND PHYSICAL: The patient is an 88-year-old male who had been living at home with his under hospice care. She had become burned out as a caregiver and no longer to help with his ADLs. He was initially placed for a respite care, however, then decided that she is no longer able to care for him at home. Also, on entry, he did develop shingles on his right chest area and was started on acyclovir. While on swing bed, the patient received no laboratory data nor physical therapies. It was noted that his vital signs stayed stable. Temperature was 36.9, blood pressure was 130/58, pulse was 90, respiratory rate was 18, saturations were 95% on 3 L. The patient had been placed on acyclovir 800 mg 3 times a day for a total of 7-day course. DISCHARGE MEDICATIONS: Metoprolol 25 mg half a pill twice a day, Tamsulosin 0.4 mg 1 pill daily, nitroglycerin 0.4 sublingual q.5 minutes x3 p.r.n. chest pain, albuterol HFA 2 puffs every 4 hours p.r.n., Zoloft 25 mg 1 pill daily, Plavix 75 mg 1 pill daily, saline nasal spray 2 puffs nasal spray 4 times a day, furosemide 20 mg 1 pill daily, senna Plus 1 pill at bedtime, [place] 1 mg q.8 hours p.r.n., oxycodone 5 mg q.4 hours p.r.n., Benadryl 25 mg q.6 hours p.r.n., triamcinolone 0.5% cream b.i.d., lorazepam 0.5 mg half pill q.4 hours p.r.n., Tylenol PM 1 pill at bedtime, magnesium oxide 400 mg 1 p.o. b.i.d., acyclovir 800 mg 1 pill 3 times a day for additional 4 more days. At the time of transfer, the patient's allergies are Cipro and morphine. The patient's code level status is do not resuscitate/do not intubate. The patient will continue to have hospice care and going to the alf. GM04/25/2019 08:21:11 MODL: 04/25/2019 16:57:03 /[id number]
== END 2019-04-25 08:49 | DRG 951 ==
LOC: VM.MS 12:55
PROVIDERS: ADMIT Family Medicine; ATTEND Family Medicine
DX: Z51.5 Encounter for palliative care (principal); C34.90 Malignant neoplasm of unspecified part of unspecified bronchus or lung; I50.32 Chronic diastolic (congestive) heart failure; I48.20 Chronic atrial fibrillation, unspecified; I13.0 Hypertensive heart and chronic kidney disease with heart failure and stage 1 through stage 4 chronic kidney disease, or unspecified chronic kidney disease; B02.9 Zoster without complications; I67.9 Cerebrovascular disease, unspecified; I35.0 Nonrheumatic aortic (valve) stenosis; F41.9 Anxiety disorder, unspecified; F32.9 Major depressive disorder, single episode, unspecified; I25.10 Atherosclerotic heart disease of native coronary artery without angina pectoris; N18.3 Chronic kidney disease, stage 3 (moderate); N40.0 Benign prostatic hyperplasia without lower urinary tract symptoms; Z87.442 Personal history of urinary calculi; Z95.0 Presence of cardiac pacemaker; Z98.49 Cataract extraction status, unspecified eye; Z79.01 Long term (current) use of anticoagulants; Z79.899 Other long term (current) drug therapy; I25.2 Old myocardial infarction; Z87.891 Personal history of nicotine dependence
CPT/HCPCS: A9270-GY